=== PATIENT | female | born 1945 | race Caucasian/White ===

== ENCOUNTER 2017-02-17 16:08 | Emergency (ER) | payer MEDICARE, OTHER ==
[~2017-02-17] VITALS: Ht 160 cm; Wt 83.9 kg
[~2017-02-17 16:08] MED LIST: AMLO10TA4 PO; ASPI81TA2 PO; DESI25TA PO; GABA300C PO; LORA2TAB PO; OMEP20CA4 PO; ROSU20TA PO; [UNRECOGNIZED DRUG - CODE] PO
--- NOTE | 2017-02-17 16:15 | NUR ---
bib son, cc: right knee pain ,05/30, s/p mechanical fall at 1200. Patient is aao4,appears in no apparent distress, respiration even and unlabored. Pt is ambulatory.
[2017-02-17] MEDS ORDERED: IV NS 0.9% 0 ML IV ONE (16:59)
--- NOTE | 2017-02-17 17:00 | NUR ---
knee immobiler not applied; the patient is ambulatory with steady gait.
[2017-02-17 17:10] VITALS: BP 120/80
--- NOTE | 2017-02-17 17:10 | NUR ---
Patient discharged to home in stable condition. Written and verbal after care instructions given. Patient verbalizes understanding of instruction.
== END 2017-02-17 17:13 | disposition home or self-care (01) ==
LOC: ER 16:08
DX: S80.01XA Contusion of right knee, initial encounter (principal); M25.561 Pain in right knee; I10 Essential (primary) hypertension; Z96.652 Presence of left artificial knee joint; Z88.0 Allergy status to penicillin; W18.30XA Fall on same level, unspecified, initial encounter; Y93.89 Activity, other specified; Y92.89 Other specified places as the place of occurrence of the external cause; Y99.8 Other external cause status; Z88.8 Allergy status to other drugs, medicaments and biological substances; Z79.82 Long term (current) use of aspirin
CPT/HCPCS: 99283; A4606; J7040; Z7610

== ENCOUNTER 2017-05-26 16:51 | Inpatient (IN) | payer MEDICARE, OTHER ==
[~2017-05-26] VITALS: Ht 160 cm; Wt 85.3 kg
--- NOTE | 2017-05-26 16:51 | NUR ---
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 PER EMS, PT REPORTED CHEST TIGHTNESS WHICH WAS RELIEVED WITH HER INHALER. NAD NOTED. PT AAO X4, AMBULATORY WITH ASSIST. RR EVEN AND UNLABORED. PT PLACED IN GOWN AND MONITOR. DR MARCUM AT BEDSIDE FOR EVAL.
[2017-05-26] MEDS ORDERED: ASPIRIN 325 MG TABLET ONE (17:13)
[2017-05-26] MEDS ORDERED: NITROGLYCERIN 0.4 MG/TAB BOTTLE ONE (17:13)
[2017-05-26 17:16] LABS: BASOPHILS # (AUTO) 0.2 /CMM (0.0-0.2); BASOPHILS % (AUTO) 1.9 % (0.0-2.0); EOSINOPHILS # (AUTO) 0.6 /CMM (0.0-0.7); HEMATOCRIT 35 % (33-45); HEMOGLOBIN 11.5 g/dL (11.5-14.8); LYMPHOCYTES # (AUTO) 2.2 /CMM (0.8-4.8); LYMPHOCYTES % (AUTO) 27.4 % (20.0-44.0); MEAN CORPUSCULAR HEMOGLOBIN 32 PG (26.0-33.0); MEAN CORPUSCULAR HGB CONC 33 g/dl (31.0-36.0); MEAN CORPUSCULAR VOLUME 97 fL (82-100); MONOCYTES # (AUTO) 0.6 /CMM (0.1-1.30); MONOCYTES % (AUTO) 7.6 % (2.0-12.0); NEUTROPHILS # (AUTO) 4.3 /CMM (1.8-8.9); NEUTROPHILS % (AUTO) 55.1 % (43.0-81.0); PLATELET COUNT (AUTO) 227 /CMM (150-450); RDW COEFFICIENT OF VARIATION 13.9 (11.5-15.0); RED BLOOD CELL COUNT(AUTO) 3.64 MIL/uL (4.0-5.2); WHITE BLOOD COUNT (AUTO) 7.9 K/uL (4.3-11.0)
[2017-05-26 17:26] LABS: CALCIUM, SERUM 8.5 mg/dL (8.5-10.1); CARBON DIOXIDE 27 mmol/L (21-32); CHLORIDE 97 mmol/L (98-107); GLUCOSE 104 mg/dL (74-106); POTASSIUM 4.1 mmol/L (3.5-5.1); SODIUM SERUM 130 mmol/L (136-145); UREA NITROGEN, BLOOD 25 mg/dL (7-18)
[2017-05-26 17:29] LABS: INR 0.97 (0.87-1.13); PROTHROMBIN TIME 10.1 SECS (9.5-12.7)
[2017-05-26] MEDS ORDERED: NITROGLYCERIN 0.4 MG/TAB BOTTLE SL ONE (17:30)
[2017-05-26] MEDS ORDERED: IV NS 0.9% 1,000 ML BAG IV ONE (17:30)
[2017-05-26] MEDS ORDERED: ASPIRIN 325 MG TABLET PO ONE (17:30)
[2017-05-26 17:35] LABS: TROPONIN I < 0.017 ng/mL (0.00-0.056)
[2017-05-26] MEDS ORDERED: ONDANSETRON HCL/PF 4 MG/2 ML VIAL ONE (17:43)
[2017-05-26] MEDS ORDERED: MORPHINE SULFATE INJ 4 MG/ML DISP.SYRIN ONE ×2 (17:43→21:37)
[2017-05-26] MEDS ORDERED: MORPHINE SULFATE INJ 2 MG/ML DISP.SYRIN IV ONE ×2 (18:00→21:30)
[2017-05-26] MEDS ORDERED: ONDANSETRON HCL/PF 4 MG/2 ML VIAL IVP ONE (18:00)
--- NOTE | 2017-05-26 19:06 | NUR ---
RECEIVED REPORT FROM MISTY IRAHETA AND MISTY GALLO FOR RODRIGUEZ.
--- NOTE | 2017-05-26 19:45 | NUR ---
URINE COLLECTED. CALLED LAB FOR MANAGER CORPORATE RESPONSIBILITY.
[2017-05-26 20:28] LABS: APPEARANCE,URINE Clear (CLEAR); BILIRUBIN,URINE Negative (NEGATIVE); BLOOD, URINE Trace-lysed Ery/uL (NEGATIVE); COLOR,URINE Yellow (YELLOW); KETONES,URINE Negative (NEGATIVE); LEUKOCYTE ESTERASE ,URINE Negative (NEGATIVE); NITRITE, URINE Negative (NEGATIVE); PH,URINE 5.5 (5.0-8.0); PROTEIN,URINE Negative (NEGATIVE); UGLUCOSE Negative (NEGATIVE); UROBILINOGEN,URINE 0.2 EU/dL (0.2)
[2017-05-26 20:49] LABS: BACTERIA,URINE Few /HPF (None Seen); MUCUS,URINE Moderate /LPF (None Seen); RBC,URINE 2-3/HPF /HPF (0-2); SQUAMOUS EPITHELIAL CELL,UR Few /HPF (None Seen); URINE AMORPHOUS URATE Few /HPF (None Seen); WBC,URINE 0-2 /HPF (0-3)
--- NOTE | 2017-05-26 22:20 | NUR ---
PT ASSIGNED TO [facility] 322-2
--- NOTE | 2017-05-26 22:24 | NUR ---
REPORT GIVEN TO MISTY GRUBBS FOR CONTINUE OF CARE.
--- NOTE | 2017-05-26 22:28 | NUR ---
PT TRANSFERED TO [facility] BED 322-2 PER ACLS PROTOCOL.
[2017-05-26 22:30] VITALS: BP 121/72
[2017-05-26] MEDS ORDERED: ONDANSETRON HCL/PF 4 MG/2 ML VIAL IVP PRN (22:30)
[2017-05-26] MEDS ORDERED: MORPHINE SULFATE INJ 2 MG/ML DISP.SYRIN IV PRN (22:30)
[2017-05-26] MEDS ORDERED: NITROGLYCERIN 0.4 MG/TAB BOTTLE SL PRN (22:30)
[2017-05-26] MEDS ORDERED: ASPIRIN EC 81 MG TABLET.DR PO ONE (23:48)
[2017-05-26] MEDS ORDERED: METOPROLOL TARTRATE 25 MG TABLET ONE (23:48)
[2017-05-26] MEDS ORDERED: GABAPENTIN 300 MG CAPSULE ONE (23:49)
[2017-05-26] MEDS ORDERED: AMLODIPINE BESYLATE 10 MG TABLET ONE (23:50)
[2017-05-26] MEDS: GABAPENTIN 300 MG CAPSULE PO SCH (23:58)
[2017-05-27] MEDS ORDERED: ASPIRIN 81 MG TAB.CHEW ONE (00:02)
[2017-05-27] MEDS: ASPIRIN 81 MG TAB.CHEW PO SCH ×2 (00:02→13:17)
--- NOTE | 2017-05-27 01:50 | NUR ---
ACCESS SERVICES REPRESENTATIVE TELE NOTES RECEIVED PATIENT VIA MAGALYS 05/26/2017 AT 2230 FROM E.R SERVICES/ACLS PROTOCOL ADMIT TO TELE ATTACH TO TELE MONITOR WITH DIAGNOSIS OF CHEST PAIN. NO S/S OF DISTRESS OR SOB. NO COMPLAIN OF CHEST PAIN AT THIS TIME, ON 2LPM VIA MA 02 SAT AT 97%, PATIENT CAN ABLE TO WALK TO THE TOILET, HEAD TO TOE ASSESSMENT IS DONE SKIN IS INTACT, SAFETY MEASURES IN PLACE, ON LOW BED TO ENSURE SAFETY. CALL LIGHT WITHIN REACH. WILL CONTINUE TO MONITOR.
[2017-05-27 04:00] VITALS: BP 128/69
--- NOTE | 2017-05-27 06:52 | NUR ---
MS RN CLOSING NOTES PATIENT COMFORTABLY ASLEEP AND EASILY AWAKEN, HEAD OF BED ELEVATED FOR BETTER LUNG EXPANSION AND GOOD CIRCULATION. ON 2LPM VIA NC 02 AT 99%, LAC 20, IV SITE NO S/S OF INFILTRATED PATENT AND FLUSHED, RESPIRATIONS EVEN AND UNLABORED, FREQUENT VISUAL CHECK DONE FOR SAFETY EVERY 2 HOURS. NURSING CARE RENDERED, NEEDS ATTENDED AND ANTICIPATED, KEPT CLEAN AND DRY AND COMFORTABLE, GOOD SKIN CARE PROVIDED. OFFLOAD AT ALL TIMES. SAFE HAZARD FREE ENVIRONMENT PROVIDED. CALL LIGHT WITHIN EASY TO REACH, ON LOW BED AT ALL TIMES TO ENSURE SAFETY, WILL ENDORSE TO THE NEXT SHIFT CONTINUE PLAN OF CARE. ATTACH TO TELE MONITOR, ON CONTINOUS MONITORING SR 65'S
[2017-05-27 08:00] VITALS: BP 122/70
--- NOTE | 2017-05-27 08:22 | NUR ---
ADMINISTRATIVE JUDGE: INITIAL NOTE RECEIVED PT A/Q X3. NO DISTRESS NOTED. ON 2 L NC SATING AT 95%. CURRENTLY NPO DUE TO POSSIBLE STRESS TEST. NO DISTRESS NOTED. NO SOB NOTED. NO PAIN NOTED. NO N/V NOTED. L AC #20. RESTING COMFORTABLY IN BED. CALL LIGHT WITHIN REACH.
[2017-05-27] MEDS ORDERED: REGADENOSON 0.4 MG/5 ML DISP.SYRIN IVP ONE (09:00)
[2017-05-27] MEDS ORDERED: LORAZEPAM 1 MG TABLET PO SCH (09:30)
[2017-05-27] MEDS ORDERED: HYDROCODONE/APAP 10/325MG 1 EA TABLET PO PRN (09:30)
[2017-05-27] MEDS ORDERED: DESIPRAMINE HCL 10 MG TABLET PO SCH (11:30)
--- NOTE | 2017-05-27 12:02 | NUR ---
PHYSICAL CHEMIST: NOTE PT PICKED UP BY RADIOLOGY FOR STRESS TEST. PT NPO SINCE MORNING. VS STABLE. NO DISTRESS NOTED.
[2017-05-27 12:03] LABS: CHOLESTEROL 114 mg/dL (<200); HDL CHOLESTEROL 55 mg/dL (40-60); LDL 49 mg/dL (0-99); TRIGLYCERIDES 77 mg/dL (30-150)
--- NOTE | 2017-05-27 13:00 | NUR ---
PT RETURNED FROM NUCLEAR MEDICINE. NO DISTRESS NOTED. NPO STOPPED. ABLE TO EAT. ALL MEDICATIONS ADMINISTERED.
[2017-05-27 13:17] VITALS: BP 138/72
[2017-05-27] MEDS: METOPROLOL TARTRATE 25 MG TABLET PO SCH ×2 (13:17)
[2017-05-27] MEDS: AMLODIPINE BESYLATE 10 MG TABLET PO SCH ×2 (13:17)
[2017-05-27] MEDS: GABAPENTIN 300 MG CAPSULE PO SCH (13:17)
--- NOTE | 2017-05-27 15:36 | NUR ---
CAREER CENTER DIRECTOR: DISCHARGE NOTE PT D/C HOME. TOOK ALL MEDICATIONS. ALL BELONGINGS ACCOUNTED FOR. NO DISTRESS NOTED. VS STABLE. NO SOB NOTED. NO PAIN NOTED. IV LOCK REMOVED FROM LEFT AC. NO REDNESS OR BLEEDING NOTED. CALLED [facility] TO TAKE PT HOME. ALL DISCHARGE PAPERS SIGNED AND COPIES GIVEN TO PT. ALL DISCHARGE INFORMATION EXPLAINED.
[2017-05-28] MEDS ORDERED: PANTOPRAZOLE 40 MG TABLET.DR PO SCH (09:00)
[2017-05-28] MEDS ORDERED: ATORVASTATIN 40 MG TABLET PO SCH (09:00)
== END 2017-05-27 15:30 | disposition home or self-care (01) | DRG 206 ==
LOC: ER 16:54 → TELE 22:38 → MED 05-27 10:50
PROVIDERS: ADMIT Internal Medicine; ATTEND Internal Medicine
DX: M94.0 Chondrocostal junction syndrome [Tietze] (principal); E22.2 Syndrome of inappropriate secretion of antidiuretic hormone; K27.9 Peptic ulcer, site unspecified, unspecified as acute or chronic, without hemorrhage or perforation; I25.10 Atherosclerotic heart disease of native coronary artery without angina pectoris; E78.5 Hyperlipidemia, unspecified; K21.9 Gastro-esophageal reflux disease without esophagitis; F32.9 Major depressive disorder, single episode, unspecified; J45.909 Unspecified asthma, uncomplicated; Z88.0 Allergy status to penicillin; I10 Essential (primary) hypertension; R79.89 Other specified abnormal findings of blood chemistry; G43.909 Migraine, unspecified, not intractable, without status migrainosus; M17.0 Bilateral primary osteoarthritis of knee; Z96.652 Presence of left artificial knee joint; Z87.891 Personal history of nicotine dependence; Z96.611 Presence of right artificial shoulder joint; K59.09 Other constipation
CPT/HCPCS: 36415; 71010-TC; 80048-TC; 80061-TC; 81000-TC; 84484-TC; 85025-TC; 85730-TC; 87081-TC; 87086-TC; 93307-TC; A4606; A9502; J2270; J2405; J2785; J7030; Z7610

== ENCOUNTER 2017-06-10 14:58 | Emergency (ER) | payer MEDICARE, OTHER ==
[~2017-06-10] VITALS: Ht 165.1 cm; Wt 68.0 kg
--- NOTE | 2017-06-10 15:40 | NUR ---
PT TAKEN TO CT.
--- NOTE | 2017-06-10 16:47 | NUR ---
Patient discharged to home in stable condition. Written and verbal after care instructions given. Patient verbalizes understanding of instruction.
[2017-06-10 16:51] VITALS: BP 109/65
== END 2017-06-10 16:52 | disposition home or self-care (01) ==
LOC: ER 15:01
DX: S09.90XA Unspecified injury of head, initial encounter (principal); E78.5 Hyperlipidemia, unspecified; G62.9 Polyneuropathy, unspecified; I10 Essential (primary) hypertension; M81.0 Age-related osteoporosis without current pathological fracture; Z79.82 Long term (current) use of aspirin; Z88.0 Allergy status to penicillin; Z88.8 Allergy status to other drugs, medicaments and biological substances; W18.30XA Fall on same level, unspecified, initial encounter; Y92.89 Other specified places as the place of occurrence of the external cause; Y93.89 Activity, other specified; Y99.8 Other external cause status
CPT/HCPCS: 70450-TC; 72125-TC; A4606; Z7610

== ENCOUNTER 2017-11-19 13:22 | Emergency (ER) | payer MEDICARE, OTHER ==
[~2017-11-19] VITALS: Ht 165.1 cm; Wt 79.4 kg
[~2017-11-19 13:22] MED LIST changes: +ASPI-1169 PO; -ASPI81TA2 PO
--- NOTE | 2017-11-19 13:35 | NUR ---
AAOX3, BB FAMILY: HEAD PAIN S/P HITTING AGAINST DESK YESTERDAY. RR IS EVEN AND UNLABORED WITH NAD NOTED. SKIN IS WARM AND DRY. AWAITING MD FOR EVAL.
[2017-11-19] MEDS ORDERED: ONDANSETRON 4 MG TAB.RAPDIS SL ONE (15:00)
[2017-11-19] MEDS ORDERED: HYDROCODONE/APAP 5/325MG 1 EACH TABLET PO ONE (15:00)
[2017-11-19] MEDS ORDERED: HYDROCODONE/APAP 5/325MG 1 EACH TABLET ONE (15:11)
[2017-11-19] MEDS ORDERED: ONDANSETRON 4 MG TAB.RAPDIS ONE (15:11)
[2017-11-19 15:55] VITALS: BP 108/74
== END 2017-11-19 15:56 | disposition home or self-care (01) ==
LOC: ER 13:25
DX: S09.8XXA Other specified injuries of head, initial encounter (principal); G43.909 Migraine, unspecified, not intractable, without status migrainosus; E78.5 Hyperlipidemia, unspecified; F41.9 Anxiety disorder, unspecified; G62.9 Polyneuropathy, unspecified; I10 Essential (primary) hypertension; Z79.82 Long term (current) use of aspirin; Z86.73 Personal history of transient ischemic attack (TIA), and cerebral infarction without residual deficits; Z88.0 Allergy status to penicillin; Z88.8 Allergy status to other drugs, medicaments and biological substances; W22.8XXA Striking against or struck by other objects, initial encounter; Y93.89 Activity, other specified; Y92.89 Other specified places as the place of occurrence of the external cause; Y99.8 Other external cause status
CPT/HCPCS: 70450; 99284; A4606; Q0162; Z7610

== ENCOUNTER 2018-03-05 09:46 | Emergency (ER) | payer MEDICARE, OTHER ==
[~2018-03-05] VITALS: Ht 160 cm; Wt 83.9 kg
[2018-03-05 09:58] VITALS: BP 156/69
[2018-03-05] MEDS ORDERED: CLINDAMYCIN HCL 150 MG CAPSULE PO ONE (10:30)
== END 2018-03-05 10:25 | disposition home or self-care (01) ==
LOC: ER 09:46
DX: L03.221 Cellulitis of neck (principal); G43.909 Migraine, unspecified, not intractable, without status migrainosus; E78.5 Hyperlipidemia, unspecified; I10 Essential (primary) hypertension; G62.9 Polyneuropathy, unspecified; M19.90 Unspecified osteoarthritis, unspecified site; F41.9 Anxiety disorder, unspecified; Z96.652 Presence of left artificial knee joint; Z88.0 Allergy status to penicillin; Z88.8 Allergy status to other drugs, medicaments and biological substances
CPT/HCPCS: A4606; Z7610

== ENCOUNTER 2018-05-14 15:56 | Emergency (ER) | payer MEDICARE, OTHER ==
[~2018-05-14] VITALS: Ht 160 cm; Wt 83.9 kg
[2018-05-14 15:56] VITALS: BP 125/73
[2018-05-14] MEDS ORDERED: HALOPERIDOL LACTATE INJ 5 MG/ML VIAL ONE (16:47)
[2018-05-14] MEDS ORDERED: HALOPERIDOL LACTATE INJ 5 MG/ML VIAL IM ONE (17:00)
== END 2018-05-14 17:31 | disposition home or self-care (01) ==
LOC: ER 15:57
DX: F41.1 Generalized anxiety disorder (principal); G89.4 Chronic pain syndrome; G43.909 Migraine, unspecified, not intractable, without status migrainosus; G62.9 Polyneuropathy, unspecified; I10 Essential (primary) hypertension; E78.5 Hyperlipidemia, unspecified; K21.9 Gastro-esophageal reflux disease without esophagitis; J45.909 Unspecified asthma, uncomplicated; Z96.659 Presence of unspecified artificial knee joint; Z88.0 Allergy status to penicillin; Z88.8 Allergy status to other drugs, medicaments and biological substances; Z79.82 Long term (current) use of aspirin
CPT/HCPCS: 96372; 99284; A4606; J1630; Z7610

== ENCOUNTER 2018-06-17 17:12 | Emergency (ER) | payer MEDICARE, OTHER ==
[~2018-06-17] VITALS: Ht 160 cm; Wt 88.9 kg
--- NOTE | 2018-06-17 17:15 | NUR ---
BIB C/O NON-RADIATING MIDSTERNAL CP X 2 DAYS. A/OX 4, BREATHING EVEN AND UNLABORED. NO SOB, NAD, VITALS STABLE. SAFETY AND COMFORT MEASURES IN [place]. AWAITING MD ORDERS.
--- NOTE | 2018-06-17 17:25 | NUR ---
NEW IV STARTED ON RFA, 20G. BLOOD DRAWN AND SENT TO LAB.
[2018-06-17] MEDS ORDERED: ASPIRIN 325 MG TABLET PO ONE (17:30)
[2018-06-17] MEDS ORDERED: ASPIRIN 325 MG TABLET ONE (17:35)
[2018-06-17 17:39] LABS: BASOPHILS # (AUTO) 0.1 /CMM (0.0-0.2); BASOPHILS % (AUTO) 0.8 % (0.0-2.0); EOSINOPHILS % (AUTO) 12.6 % (0.0-6.0); HEMATOCRIT 37 % (33-45); HEMOGLOBIN 12.3 g/dL (11.5-14.8); LYMPHOCYTES # (AUTO) 2.5 /CMM (0.8-4.8); LYMPHOCYTES % (AUTO) 35.9 % (20.0-44.0); MEAN CORPUSCULAR HGB CONC 33 g/dl (31.0-36.0); MEAN CORPUSCULAR VOLUME 91 fL (82-100); MONOCYTES # (AUTO) 0.5 /CMM (0.1-1.30); MONOCYTES % (AUTO) 7.6 % (2.0-12.0); NEUTROPHILS # (AUTO) 2.9 /CMM (1.8-8.9); NEUTROPHILS % (AUTO) 43.1 % (43.0-81.0); PLATELET COUNT (AUTO) 248 /CMM (150-450); RDW COEFFICIENT OF VARIATION 13.8 (11.5-15.0); WHITE BLOOD COUNT (AUTO) 6.9 K/uL (4.3-11.0)
[2018-06-17 17:49] LABS: CALCIUM, SERUM 8.6 mg/dL (8.5-10.1); CARBON DIOXIDE 26 mmol/L (21-32); CHLORIDE 95 mmol/L (98-107); CREATININE 0.9 mg/dL (0.6-1.3); GLUCOSE 108 mg/dL (74-106); POTASSIUM 3.9 mmol/L (3.5-5.1); SODIUM SERUM 127 mmol/L (136-145); UREA NITROGEN, BLOOD 10 mg/dL (7-18)
[2018-06-17] MEDS ORDERED: RANI300T4 PO (17:50)
[2018-06-17] MEDS ORDERED: DEXL30CA3 PO (17:50)
[2018-06-17] MEDS ORDERED: LISI2.5T2 PO (17:50)
[2018-06-17] MEDS ORDERED: OXYC5TAB3 PO (17:50)
[2018-06-17] MEDS ORDERED: POLY17PO4 PO (17:50)
[2018-06-17] MEDS ORDERED: BISA5TAB10 PO (17:50)
[2018-06-17] MEDS ORDERED: ALBU18HF2 IH (17:50)
[2018-06-17 17:53] LABS: INR 0.92 (0.85-1.15)
[2018-06-17 17:58] LABS: TROPONIN I < 0.017 ng/mL (0.00-0.056)
[2018-06-17 18:02] LABS: B-TYPE NATRIURETIC PEPTIDE 162 PG/ML (0-125)
--- NOTE | 2018-06-17 18:10 | NUR ---
SLEEVE SETTER SAFETY STITCH AT BEDSIDE.
[2018-06-17 18:36] VITALS: BP 152/61
--- NOTE | 2018-06-17 18:37 | NUR ---
IV removed. Catheter intact and site benign. Pressure and 4x4 applied to site. No bleeding noted. Patient discharged to home in stable condition. Written and verbal after care instructions given. Patient verbalizes understanding of instruction.
== END 2018-06-17 18:36 | disposition home or self-care (01) ==
LOC: ER 17:13
DX: R07.89 Other chest pain (principal); R06.02 Shortness of breath; G43.909 Migraine, unspecified, not intractable, without status migrainosus; G62.9 Polyneuropathy, unspecified; I10 Essential (primary) hypertension; E78.5 Hyperlipidemia, unspecified; F41.9 Anxiety disorder, unspecified; I49.8 Other specified cardiac arrhythmias; Z96.652 Presence of left artificial knee joint; Z88.0 Allergy status to penicillin; Z88.8 Allergy status to other drugs, medicaments and biological substances; Z87.891 Personal history of nicotine dependence; Z79.82 Long term (current) use of aspirin
CPT/HCPCS: 36415; 71045-TC; 80048-TC; 83880; 84484-TC; 85025-TC; 85730-TC; A4606; Z7610

== ENCOUNTER 2018-09-16 15:31 | Emergency (ER) | END 2018-09-16 16:59 | disposition home or self-care (01) | DX: G43.909 Migraine, unspecified, not intractable, without status migrainosus (principal); G62.9 Polyneuropathy, unspecified; F41.9 Anxiety disorder, unspecified; F32.9 Major depressive disorder, single episode, unspecified; I10 Essential (primary) hypertension; E78.5 Hyperlipidemia, unspecified; Z96.652 Presence of left artificial knee joint; Z88.1 Allergy status to other antibiotic agents; Z88.8 Allergy status to other drugs, medicaments and biological substances; Z79.82 Long term (current) use of aspirin; Z87.891 Personal history of nicotine dependence ==

== ENCOUNTER 2018-12-29 14:30 | Emergency (ER) | payer MEDICARE, OTHER ==
[~2018-12-29] VITALS: Ht 160 cm; Wt 89.8 kg
[~2018-12-29 14:30] MED LIST changes: +ALBU18HF2 IH; -AMLO10TA4 PO; +BISA5TAB10 PO; -DESI25TA PO; +DEXL30CA3 PO; -GABA300C PO; +LISI2.5T2 PO; -OMEP20CA4 PO; +OXYC5TAB3 PO; +POLY17PO4 PO; +RANI300T4 PO; -ROSU20TA PO; +ROSU20TA2 PO; -[UNRECOGNIZED DRUG - CODE] PO
[2018-12-29] MEDS ORDERED: HALOPERIDOL LACTATE INJ 5 MG/ML VIAL ONE (14:58)
[2018-12-29] MEDS ORDERED: HALOPERIDOL LACTATE INJ 5 MG/ML VIAL IM ONE (15:00)
[2018-12-29 15:06] VITALS: BP 112/63
== END 2018-12-29 15:07 | disposition home or self-care (01) ==
LOC: ER 14:31
DX: G43.909 Migraine, unspecified, not intractable, without status migrainosus (principal); F41.9 Anxiety disorder, unspecified; G89.29 Other chronic pain; E78.5 Hyperlipidemia, unspecified; I10 Essential (primary) hypertension; G62.9 Polyneuropathy, unspecified; Z96.652 Presence of left artificial knee joint; Z88.0 Allergy status to penicillin; Z88.8 Allergy status to other drugs, medicaments and biological substances; Z79.82 Long term (current) use of aspirin
CPT/HCPCS: 96372; 99283; J1630

== ENCOUNTER 2019-01-13 08:13 | Emergency (ER) | payer MEDICARE, OTHER ==
[~2019-01-13] VITALS: Ht 160 cm; Wt 42.2 kg
--- NOTE | 2019-01-13 08:16 | NUR ---
BIB SON W C/O MID CHEST PAIN, HEAVY FEELING STATED BY PT, MIGRAINE AND BILAT HANDS NUMBNESS, TO ER BED 10 , HOOKED TO ISOTOPE TECHNOLOGIST, CHANGED TO GOWN, PROVIDED W WARM BLANKET, AWAITING MD CARTER.
[2019-01-13 08:57] LABS: BASOPHILS # (AUTO) 0.1 /CMM (0.0-0.2); BASOPHILS % (AUTO) 0.6 % (0.0-2.0); HEMATOCRIT 35 % (33-45); HEMOGLOBIN 11.4 g/dL (11.5-14.8); LYMPHOCYTES # (AUTO) 2.3 /CMM (0.8-4.8); MEAN CORPUSCULAR HGB CONC 33 g/dl (31.0-36.0); MEAN CORPUSCULAR VOLUME 93 fL (82-100); MONOCYTES # (AUTO) 0.9 /CMM (0.1-1.30); MONOCYTES % (AUTO) 8.7 % (2.0-12.0); NEUTROPHILS # (AUTO) 3.5 /CMM (1.8-8.9); NEUTROPHILS % (AUTO) 33.1 % (43.0-81.0); PLATELET COUNT (AUTO) 252 /CMM (150-450); RED BLOOD CELL COUNT(AUTO) 3.72 MIL/uL (4.0-5.2); WHITE BLOOD COUNT (AUTO) 10.5 K/uL (4.3-11.0)
[2019-01-13 08:58] LABS: EOSINOPHILS % (AUTO) 35.6 % (0.0-6.0)
[2019-01-13] MEDS ORDERED: IV NS 0.9% 1,000 ML BAG IV ONE (09:00)
[2019-01-13] MEDS ORDERED: METOCLOPRAMIDE HCL 10 MG/2 ML VIAL IV ONE (09:00)
[2019-01-13] MEDS ORDERED: METOCLOPRAMIDE HCL 10 MG/2 ML VIAL ONE (09:05)
--- NOTE | 2019-01-13 09:10 | NUR ---
RDA AT BEDSIDE.
[2019-01-13 09:22] LABS: CALCIUM, SERUM 8.7 mg/dL (8.5-10.1); CARBON DIOXIDE 29 mmol/L (21-32); CHLORIDE 95 mmol/L (98-107); CREATININE 0.9 mg/dL (0.6-1.3); GLUCOSE 103 mg/dL (74-106); POTASSIUM 3.9 mmol/L (3.5-5.1); SODIUM SERUM 131 mmol/L (136-145); UREA NITROGEN, BLOOD 16 mg/dL (7-18)
[2019-01-13 09:51] LABS: EOSINOPHILS % (MANUAL) 32 % (0-4); LYMPHOCYTES % (MANUAL) 23 % (16-48); MONOCYTES % (MANUAL) 10 % (0-11.0); NEUTROPHILS % (MANUAL) 35 (42-76)
[2019-01-13] MEDS ORDERED: HALOPERIDOL LACTATE INJ 5 MG/ML VIAL ONE (10:27)
[2019-01-13] MEDS ORDERED: HALOPERIDOL LACTATE INJ 5 MG/ML VIAL IV ONE (10:30)
--- NOTE | 2019-01-13 11:07 | NUR ---
IV removed. Catheter intact and site benign. Pressure and 4x4 applied to site. No bleeding noted.Patient discharged to home in stable condition. Written and verbal after care instructions given. Patient verbalizes understanding of instruction.
[2019-01-13 11:11] VITALS: BP 147/79
== END 2019-01-13 11:11 | disposition home or self-care (01) ==
LOC: ER 08:15
DX: R07.89 Other chest pain (principal); G43.909 Migraine, unspecified, not intractable, without status migrainosus; I10 Essential (primary) hypertension; E78.5 Hyperlipidemia, unspecified; G62.9 Polyneuropathy, unspecified; F41.9 Anxiety disorder, unspecified; Z96.652 Presence of left artificial knee joint; Z88.0 Allergy status to penicillin; Z88.8 Allergy status to other drugs, medicaments and biological substances; Z79.82 Long term (current) use of aspirin; Z87.891 Personal history of nicotine dependence
CPT/HCPCS: 36415; 71045; 80048; 84484; 85025; 93005; 96374; 96375; 99284; A4216; J1630; J2765; J7030

== ENCOUNTER 2019-02-01 17:33 | Emergency (ER) | payer MEDICARE, OTHER ==
[~2019-02-01] VITALS: Ht 160 cm; Wt 86.2 kg
[2019-02-01 17:33] VITALS: BP 128/62
[2019-02-01] MEDS ORDERED: LIDOCAINE /MPF 1% VIAL 5 ML VIAL ONE (19:27)
[2019-02-01] MEDS ORDERED: LIDOCAINE HCL/PF 1% 30 ML VIAL TP ONE (19:30)
[2019-02-01] MEDS ORDERED: HALOPERIDOL LACTATE INJ 5 MG/ML VIAL IM ONE (20:00)
[2019-02-01] MEDS ORDERED: HALOPERIDOL LACTATE INJ 5 MG/ML VIAL ONE (20:01)
== END 2019-02-01 20:38 | disposition home or self-care (01) ==
LOC: ER 17:33
DX: L03.011 Cellulitis of right finger (principal); G43.909 Migraine, unspecified, not intractable, without status migrainosus; I10 Essential (primary) hypertension; E78.5 Hyperlipidemia, unspecified; G62.9 Polyneuropathy, unspecified; F41.9 Anxiety disorder, unspecified; Z96.652 Presence of left artificial knee joint; Z88.0 Allergy status to penicillin; Z88.8 Allergy status to other drugs, medicaments and biological substances; Z79.82 Long term (current) use of aspirin; Z87.891 Personal history of nicotine dependence; W01.0XXA Fall on same level from slipping, tripping and stumbling without subsequent striking against object, initial encounter; Y93.89 Activity, other specified; Y92.89 Other specified places as the place of occurrence of the external cause; Y99.8 Other external cause status
CPT/HCPCS: 11750; 96372; 99284; J1630; J3490 ×2

== ENCOUNTER 2019-02-24 16:51 | Emergency (ER) | payer MEDICARE, OTHER ==
[~2019-02-24] VITALS: Ht 165.1 cm; Wt 91.2 kg
[2019-02-24 17:18] VITALS: BP 122/81
[2019-02-24] MEDS ORDERED: ACETAMINOPHEN 325 MG TABLET PO ONE (18:00)
[2019-02-24] MEDS ORDERED: ACETAMINOPHEN 325 MG TABLET ONE (18:13)
== END 2019-02-24 19:11 | disposition home or self-care (01) ==
LOC: ER 16:52
DX: S93.491A Sprain of other ligament of right ankle, initial encounter (principal); G43.909 Migraine, unspecified, not intractable, without status migrainosus; I10 Essential (primary) hypertension; E78.5 Hyperlipidemia, unspecified; F41.9 Anxiety disorder, unspecified; M19.90 Unspecified osteoarthritis, unspecified site; M81.0 Age-related osteoporosis without current pathological fracture; G62.9 Polyneuropathy, unspecified; Z96.652 Presence of left artificial knee joint; Z88.0 Allergy status to penicillin; Z88.8 Allergy status to other drugs, medicaments and biological substances; Z87.891 Personal history of nicotine dependence; Z79.82 Long term (current) use of aspirin; Z79.899 Other long term (current) drug therapy; W01.0XXA Fall on same level from slipping, tripping and stumbling without subsequent striking against object, initial encounter; Y93.89 Activity, other specified; Y92.89 Other specified places as the place of occurrence of the external cause; Y99.8 Other external cause status
CPT/HCPCS: 73610-TC; 73630-TC

== ENCOUNTER 2019-04-19 12:23 | Emergency (ER) | payer MEDICARE, OTHER ==
[~2019-04-19] VITALS: Ht 160 cm; Wt 92.5 kg
[2019-04-19 12:38] VITALS: BP 127/55
--- NOTE | 2019-04-19 12:40 | NUR ---
OLEKSANDR FLORES AT BEDSIDE FOR EVAL.
[2019-04-19] MEDS ORDERED: HALOPERIDOL LACTATE INJ 5 MG/ML VIAL ONE (12:51)
--- NOTE | 2019-04-19 12:55 | NUR ---
URINE SPECIMEN COLLECTED AND SENT TO LAB.
[2019-04-19] MEDS ORDERED: HALOPERIDOL LACTATE INJ 5 MG/ML VIAL IM ONE (13:00)
[2019-04-19 13:10] LABS: APPEARANCE,URINE Clear (CLEAR); BILIRUBIN,URINE Negative (NEGATIVE); BLOOD, URINE Small Ery/uL (NEGATIVE); COLOR,URINE Yellow (YELLOW); KETONES,URINE Negative (NEGATIVE); LEUKOCYTE ESTERASE ,URINE Negative (NEGATIVE); NITRITE, URINE Negative (NEGATIVE); PH,URINE 7.5 (5.0-8.0); PROTEIN,URINE Negative (NEGATIVE); UGLUCOSE Negative (NEGATIVE); UROBILINOGEN,URINE 0.2 EU/dL (0.2)
[2019-04-19 13:14] LABS: BACTERIA,URINE Rare /HPF (None Seen); SQUAMOUS EPITHELIAL CELL,UR Few /HPF (None Seen); WBC,URINE 0-2 /HPF (0-3)
[2019-04-19] MEDS ORDERED: ACETAMINOPHEN 325 MG TABLET PO ONE (13:30)
== END 2019-04-19 13:51 | disposition home or self-care (01) ==
LOC: ER 12:23
DX: G43.909 Migraine, unspecified, not intractable, without status migrainosus (principal); F41.9 Anxiety disorder, unspecified; R35.8 Other polyuria; I10 Essential (primary) hypertension; E78.5 Hyperlipidemia, unspecified; G62.9 Polyneuropathy, unspecified; M19.90 Unspecified osteoarthritis, unspecified site; M81.0 Age-related osteoporosis without current pathological fracture; Z96.652 Presence of left artificial knee joint; Z88.0 Allergy status to penicillin; Z88.8 Allergy status to other drugs, medicaments and biological substances; Z87.891 Personal history of nicotine dependence; Z79.899 Other long term (current) drug therapy; Z79.82 Long term (current) use of aspirin
CPT/HCPCS: 81001; 96372; 99283; J1630; 81000-TC

== ENCOUNTER 2019-05-05 16:56 | Emergency (ER) | payer MEDICARE, OTHER ==
[~2019-05-05] VITALS: Ht 160 cm; Wt 92.1 kg
[2019-05-05] MEDS ORDERED: HALOPERIDOL LACTATE INJ 5 MG/ML VIAL IM ONE (18:00)
[2019-05-05] MEDS ORDERED: HALOPERIDOL LACTATE INJ 5 MG/ML VIAL ONE (18:07)
[2019-05-05 18:27] VITALS: BP 137/82
--- NOTE | 2019-05-05 18:27 | NUR ---
dPatient discharged to home in stable condition. Written and verbal after care instructions given. Patient verbalizes understanding of instruction.
== END 2019-05-05 18:28 | disposition home or self-care (01) ==
LOC: ER 17:00
DX: G43.909 Migraine, unspecified, not intractable, without status migrainosus (principal); G62.9 Polyneuropathy, unspecified; I10 Essential (primary) hypertension; E78.5 Hyperlipidemia, unspecified; F41.9 Anxiety disorder, unspecified; Z96.652 Presence of left artificial knee joint; Z88.0 Allergy status to penicillin; Z88.8 Allergy status to other drugs, medicaments and biological substances; Z87.891 Personal history of nicotine dependence; Z79.82 Long term (current) use of aspirin
CPT/HCPCS: 96372; 99283; J1630

== ENCOUNTER 2019-07-28 13:09 | Emergency (ER) | payer MEDICARE, OTHER ==
[~2019-07-28] VITALS: Ht 160 cm; Wt 90.7 kg
--- NOTE | 2019-07-28 13:14 | NUR ---
PT BIB SON C/O CHEST PAIN PRESSURE LIKE SINCE YESTERDAY, PT IS AAOX3, NOT IN RESPIRATORY DISTRESS, HOOKED TO MONITOR, KEPT RESTED AND COMFORTABLE, WILL CONTINUE TO MONITOR.
--- NOTE | 2019-07-28 13:24 | NUR ---
PT SEEN AND EXAMINED BY
[2019-07-28] MEDS ORDERED: ASPIRIN 325 MG TABLET PO ONE (13:30)
[2019-07-28] MEDS ORDERED: NITROGLYCERIN PACKET 1 GM PACKET TD ONE (13:30)
--- NOTE | 2019-07-28 13:35 | NUR ---
IV LINE ESTABLISHED, BLOOD DRAWN AND SENT TO LAB.
[2019-07-28 13:36] LABS: BASOPHILS # (AUTO) 0.1 /CMM (0.0-0.2); BASOPHILS % (AUTO) 0.9 % (0.0-2.0); EOSINOPHILS % (AUTO) 12.7 % (0.0-6.0); HEMATOCRIT 36 % (33-45); HEMOGLOBIN 11.7 g/dL (11.5-14.8); LYMPHOCYTES # (AUTO) 2.2 /CMM (0.8-4.8); LYMPHOCYTES % (AUTO) 29.1 % (20.0-44.0); MEAN CORPUSCULAR HGB CONC 33 g/dl (31.0-36.0); MEAN CORPUSCULAR VOLUME 93 fL (82-100); MONOCYTES # (AUTO) 0.5 /CMM (0.1-1.30); MONOCYTES % (AUTO) 7.3 % (2.0-12.0); NEUTROPHILS # (AUTO) 3.7 /CMM (1.8-8.9); PLATELET COUNT (AUTO) 262 /CMM (150-450); RED BLOOD CELL COUNT(AUTO) 3.83 MIL/uL (4.0-5.2); WHITE BLOOD COUNT (AUTO) 7.4 K/uL (4.3-11.0)
[2019-07-28] MEDS ORDERED: NITROGLYCERIN PACKET 1 GM PACKET ONE (13:42)
[2019-07-28] MEDS ORDERED: ASPIRIN 81 MG TAB.CHEW ONE ×2 (13:42→13:44)
[2019-07-28 13:53] LABS: ALBUMIN 3.7 g/dL (3.4-5.0); BILIRUBIN,TOTAL 0.2 mg/dL (0.2-1.0); POTASSIUM 4.1 mmol/L (3.5-5.1); TOTAL PROTEIN, SERUM 6.8 g/dL (6.4-8.2)
[2019-07-28] MEDS ORDERED: oxyCODONE/APAP (5/325 MG) 1 UDTAB TABLET PO ONE (14:30)
[2019-07-28 14:48] LABS: BILIRUBIN,DIRECT 0.1 mg/dL (0.0-0.2); CALCIUM, SERUM 8.5 mg/dL (8.5-10.1); CREATININE 0.9 mg/dL (0.6-1.3)
[2019-07-28] MEDS ORDERED: oxyCODONE/APAP (5/325 MG) 1 UDTAB TABLET ONE (15:03)
[2019-07-28] MEDS ORDERED: KETOROLAC TROMETHAMINE INJ 30 MG/ML VIAL ONE (15:07)
[2019-07-28] MEDS ORDERED: HALOPERIDOL LACTATE INJ 5 MG/ML VIAL ONE (15:28)
[2019-07-28] MEDS ORDERED: HALOPERIDOL LACTATE INJ 5 MG/ML VIAL IV ONE (15:30)
[2019-07-28] MEDS ORDERED: LIDOCAINE PATCH (16:11)
[2019-07-28] MEDS ORDERED: RIZA10TA27 PO (16:11)
[2019-07-28] MEDS ORDERED: GABA-532 PO (16:11)
[2019-07-28] MEDS ORDERED: MIRT15TA PO (16:11)
[2019-07-28] MEDS ORDERED: ERYT3.5O9 EACHEYE (16:11)
[2019-07-28] MEDS ORDERED: SUMA100T16 PO (16:11)
[2019-07-28] MEDS ORDERED: BENZ-13 PO (16:11)
[2019-07-28] MEDS ORDERED: FURO-145 PO (16:11)
[2019-07-28] MEDS ORDERED: CARB15DR OP (16:11)
[2019-07-28] MEDS ORDERED: DOXY50CA2 PO (16:11)
[2019-07-28] MEDS ORDERED: MELO-105 PO (16:11)
[2019-07-28] MEDS ORDERED: KETO10DR3 OP (16:11)
[2019-07-28] MEDS ORDERED: DICL100G16 TP (16:11)
[2019-07-28] MEDS ORDERED: AZEL137S7 NS (16:11)
[2019-07-28] MEDS ORDERED: VALA100026 PO (16:11)
[2019-07-28] MEDS ORDERED: TROL85CR9 TP (16:11)
--- NOTE | 2019-07-28 16:41 | NUR ---
Patient does not wish to proceed with medical care recommended by . Patient given information related to possible complications, up to and including , which could occur as a result of leaving the hospital at this time. Patient verbalizes understanding of risks involved due to leaving against medical advice. Patient has signed AMA form.
[2019-07-28 16:42] VITALS: BP 133/82
== END 2019-07-28 16:43 | disposition left against medical advice (07) ==
LOC: ER 13:09
DX: I21.4 Non-ST elevation (NSTEMI) myocardial infarction (principal); R07.89 Other chest pain; I10 Essential (primary) hypertension; E78.5 Hyperlipidemia, unspecified; G43.909 Migraine, unspecified, not intractable, without status migrainosus; F41.9 Anxiety disorder, unspecified; Z96.652 Presence of left artificial knee joint; Z79.899 Other long term (current) drug therapy; Z88.0 Allergy status to penicillin; Z88.8 Allergy status to other drugs, medicaments and biological substances; Z87.891 Personal history of nicotine dependence; Z79.82 Long term (current) use of aspirin
CPT/HCPCS: 36415; 71045; 80048; 80076; 84484; 85025; 93005; 96372; 99284; J1630; J1885

== ENCOUNTER 2019-08-26 11:19 | Emergency (ER) | payer MEDICARE, OTHER ==
[~2019-08-26] VITALS: Ht 160 cm; Wt 81.6 kg
[~2019-08-26 11:19] MED LIST changes: +AZEL137S7 NS; +BENZ-13 PO; +CARB15DR OP; +DICL100G16 TP; +DOXY50CA2 PO; +ERYT3.5O9 EACHEYE; +FURO-145 PO; +GABA-532 PO; +KETO10DR3 OP; +LIDOCAINE PATCH; +MELO-105 PO; +MIRT15TA PO; +RIZA10TA27 PO; +SUMA100T16 PO; +TROL85CR9 TP; +VALA100026 PO
--- NOTE | 2019-08-26 11:32 | NUR ---
SATHYA FOR HEADACHE X 1 DAYS, -NV, pt aaox4, -sob, nad noted, vss, pending md acosta
[2019-08-26 11:59] LABS: BASOPHILS % (AUTO) 0.8 % (0.0-2.0); EOSINOPHILS % (AUTO) 0.3 % (0.0-6.0); HEMATOCRIT 35 % (33-45); HEMOGLOBIN 11.7 g/dL (11.5-14.8); LYMPHOCYTES # (AUTO) 1.3 /CMM (0.8-4.8); LYMPHOCYTES % (AUTO) 21.2 % (20.0-44.0); MEAN CORPUSCULAR HGB CONC 33 g/dl (31.0-36.0); MEAN CORPUSCULAR VOLUME 91 fL (82-100); MONOCYTES # (AUTO) 0.3 /CMM (0.1-1.30); MONOCYTES % (AUTO) 5.5 % (2.0-12.0); NEUTROPHILS # (AUTO) 4.3 /CMM (1.8-8.9); NEUTROPHILS % (AUTO) 72.2 % (43.0-81.0); PLATELET COUNT (AUTO) 226 /CMM (150-450); RED BLOOD CELL COUNT(AUTO) 3.91 MIL/uL (4.0-5.2); WHITE BLOOD COUNT (AUTO) 5.9 K/uL (4.3-11.0)
[2019-08-26] MEDS ORDERED: HALOPERIDOL LACTATE INJ 5 MG/ML VIAL IV ONE (12:00)
[2019-08-26] MEDS ORDERED: IV NS 0.9% 1,000 ML BAG IV ONE (12:00)
[2019-08-26 12:12] LABS: CALCIUM, SERUM 9.3 mg/dL (8.5-10.1); CARBON DIOXIDE 27 mmol/L (21-32); CHLORIDE 89 mmol/L (98-107); CREATININE 0.6 mg/dL (0.6-1.3); GLUCOSE 127 mg/dL (74-106); POTASSIUM 3.6 mmol/L (3.5-5.1); SODIUM SERUM 124 mmol/L (136-145); UREA NITROGEN, BLOOD 8 mg/dL (7-18)
[2019-08-26] MEDS ORDERED: HALOPERIDOL LACTATE INJ 5 MG/ML VIAL ONE (12:13)
[2019-08-26 12:17] LABS: ALANINE AMINOTRANSFERASE 23 U/L (12-78); ALBUMIN 3.8 g/dL (3.4-5.0); ALKALINE PHOSPHATASE 50 U/L (46-116); ASPARTATE AMINOTRANSFERASE 17 U/L (15-37); BILIRUBIN,TOTAL 0.4 mg/dL (0.2-1.0); TOTAL PROTEIN, SERUM 6.9 g/dL (6.4-8.2)
[2019-08-26 12:20] LABS: APPEARANCE,URINE Clear (CLEAR); BILIRUBIN,URINE Negative (NEGATIVE); BLOOD, URINE Moderate Ery/uL (NEGATIVE); COLOR,URINE Yellow (YELLOW); KETONES,URINE 15 (NEGATIVE); LEUKOCYTE ESTERASE ,URINE Negative (NEGATIVE); NITRITE, URINE Negative (NEGATIVE); PROTEIN,URINE Negative (NEGATIVE); UGLUCOSE Negative (NEGATIVE); UROBILINOGEN,URINE 0.2 EU/dL (0.2)
[2019-08-26] MEDS ORDERED: METOCLOPRAMIDE HCL 10 MG/2 ML VIAL ONE (12:36)
[2019-08-26 12:55] VITALS: BP 150/75
[2019-08-26] MEDS ORDERED: METOCLOPRAMIDE HCL 10 MG/2 ML VIAL IV ONE (13:00)
[2019-08-26 13:01] LABS: BACTERIA,URINE Rare /HPF (None Seen); WBC,URINE NONE SEEN /HPF (0-3)
[2019-08-26 13:02] LABS: SQUAMOUS EPITHELIAL CELL,UR None Seen /HPF (None Seen)
--- NOTE | 2019-08-26 13:09 | NUR ---
Patient discharged to home in stable condition. Written and verbal after care instructions given. Patient verbalizes understanding of instruction. IV removed. Catheter intact and site benign. Pressure and 4x4 applied to site. No bleeding noted.
== END 2019-08-26 13:11 | disposition home or self-care (01) ==
LOC: ER 11:21
DX: G43.909 Migraine, unspecified, not intractable, without status migrainosus (principal); E87.1 Hypo-osmolality and hyponatremia; R31.29 Other microscopic hematuria; I10 Essential (primary) hypertension; E78.5 Hyperlipidemia, unspecified; F41.9 Anxiety disorder, unspecified; Z98.890 Other specified postprocedural states; Z88.0 Allergy status to penicillin; Z88.8 Allergy status to other drugs, medicaments and biological substances; Z79.899 Other long term (current) drug therapy; Z79.82 Long term (current) use of aspirin
CPT/HCPCS: 36415; 80053; 81001; 84484; 85025; 93005; 96374; 96375; 99284; J1630; J2765; J7030 ×2; 81000-TC

== ENCOUNTER 2020-12-13 09:36 | Emergency (ER) | payer MEDICARE, OTHER ==
[~2020-12-13] VITALS: Ht 160 cm; Wt 90.7 kg
[~2020-12-13 09:36] MED LIST changes: +KETO10DR3 EACHEYE; -KETO10DR3 OP; +MIRT-121 PO; -MIRT15TA PO
--- NOTE | 2020-12-13 09:54 | NUR ---
Pablo garcia in [facility] - 12/13/[address] ROSS AT [facility] FOR BLOOD DRAW.
--- NOTE | 2020-12-13 09:56 | NUR ---
THE PATIENT IS BIB HER SON DIZZINESS X 1 WEEK, CHEST PAIN AND WORSENING SOB X 3 DAYS. THE PATIENT RATES CHEST PAIN 5/10. THE PATIENT IS IN ROOM AIR. RESPIRATION REGULAR AND UNLABORED BUT WITH COMPLAIN OF SOB. THE PATIENT`S OXYGEN SATURATION IN ROOM AIR IS 100%. THE PATIENT IS ATTACHED ON A MONITOR, PROVIDED WITH A WARM BLANKET. WILL CONTINUE TO MONITOR.
--- NOTE | 2020-12-13 09:58 | NUR ---
DR ROSS AT BEDSIDE FOR EVAL.
--- NOTE | 2020-12-13 10:15 | NUR ---
NON LICENSED NUCLEAR PLANT OPERATOR AT BEDSIDE FOR CHEST XRAY.
[2020-12-13 10:17] LABS: EOSINOPHILS % (AUTO) 5.7 % (0.0-6.0); HEMATOCRIT 35 % (33-45); HEMOGLOBIN 11.4 g/dL (11.5-14.8); LYMPHOCYTES % (AUTO) 22.3 % (20.0-44.0); MEAN CORPUSCULAR HGB CONC 33 g/dl (31.0-36.0); MEAN CORPUSCULAR VOLUME 97 fL (82-100); MONOCYTES # (AUTO) 0.4 /CMM (0.1-1.30); MONOCYTES % (AUTO) 9.8 % (2.0-12.0); NEUTROPHILS # (AUTO) 2.8 /CMM (1.8-8.9); NEUTROPHILS % (AUTO) 61.2 % (43.0-81.0); PLATELET COUNT (AUTO) 231 /CMM (150-450); RED BLOOD CELL COUNT(AUTO) 3.56 MIL/uL (4.0-5.2); WHITE BLOOD COUNT (AUTO) 4.6 K/uL (4.3-11.0)
[2020-12-13 10:20] LABS: CALCIUM, SERUM 8.8 mg/dL (8.5-10.1); CARBON DIOXIDE 28 mmol/L (21-32); CHLORIDE 100 mmol/L (98-107); GLUCOSE 124 mg/dL (74-106); POTASSIUM 4.3 mmol/L (3.5-5.1); SODIUM SERUM 136 mmol/L (136-145); UREA NITROGEN, BLOOD 17 mg/dL (7-18)
[2020-12-13] MEDS ORDERED: LIDO30AD10 TP (12:01)
[2020-12-13] MEDS ORDERED: ONDA4TAB5 PO (12:01)
[2020-12-13] MEDS ORDERED: GABA-532 PO (12:01)
[2020-12-13] MEDS ORDERED: ASPI-1420 PO (12:01)
[2020-12-13] MEDS ORDERED: LORA10TA7 PO (12:01)
[2020-12-13] MEDS ORDERED: TRAZ-252 PO (12:01)
[2020-12-13] MEDS ORDERED: NALO4SPR (12:04)
[2020-12-13 13:03] VITALS: BP 141/78
--- NOTE | 2020-12-13 13:03 | NUR ---
Patient discharged to home in stable condition. Written and verbal after care instructions given. Patient verbalizes understanding of instruction.IV removed. Catheter intact and site benign. Pressure and 4x4 applied to site. No bleeding noted.
== END 2020-12-13 13:04 | disposition home or self-care (01) ==
LOC: ER 09:39
DX: R07.89 Other chest pain (principal); G43.909 Migraine, unspecified, not intractable, without status migrainosus; I10 Essential (primary) hypertension; E78.5 Hyperlipidemia, unspecified; F41.9 Anxiety disorder, unspecified; G62.9 Polyneuropathy, unspecified; M81.0 Age-related osteoporosis without current pathological fracture; Z98.890 Other specified postprocedural states; Z88.0 Allergy status to penicillin; Z88.2 Allergy status to sulfonamides; Z88.5 Allergy status to narcotic agent; Z88.6 Allergy status to analgesic agent; Z88.8 Allergy status to other drugs, medicaments and biological substances; Z87.891 Personal history of nicotine dependence; Z79.899 Other long term (current) drug therapy; Z79.82 Long term (current) use of aspirin
CPT/HCPCS: 36415; 70450-TC; 71045-TC; 80048-TC; 84484-TC; 85025-TC

== ENCOUNTER 2021-02-11 03:42 | Inpatient (IN) | payer MEDICARE, OTHER ==
[~2021-02-11] VITALS: Ht 160 cm; Wt 93.6 kg
[~2021-02-11 03:42] MED LIST changes: -ASPI-1169 PO; +ASPI-1420 PO; -DOXY50CA2 PO; +LIDO30AD10 TP; -LIDOCAINE PATCH; +LORA10TA7 PO; +NALO4SPR; +ONDA4TAB5 PO; -RANI300T4 PO; +TRAZ-252 PO; -TROL85CR9 TP
--- NOTE | 2021-02-11 04:37 | NUR ---
PATIENT CAME TO ER BED 2 C/O LEFT SHOULDER PAIN S/P FALL 2x DAYS AGO. PATIENT UNABLE TO LIFT HER ARM, BUT IS ABLE TO MOVE HER FINGERS, HANDS, AND WRIST. EQUAL RADIAL PULSE, WITH EQUAL SENSATION ON BOTH ARMS. PATIENT IS ALERT AND ORIENTED x4. DENIES SOB. BREATHING EVENLY AND UNLABORED ON ROOM AIR. CONNECTED TO THE MONITOR.
[2021-02-11 04:55] LABS: CALCIUM, SERUM 8.1 mg/dL (8.5-10.1); CREATININE 0.8 mg/dL (0.6-1.3); POTASSIUM 3.9 mmol/L (3.5-5.1)
[2021-02-11 05:05] LABS: BASOPHILS % (AUTO) 0.4 % (0.0-2.0); HEMATOCRIT 35 % (33-45); HEMOGLOBIN 11.8 g/dL (11.5-14.8); LYMPHOCYTES # (AUTO) 1.1 /CMM (0.8-4.8); LYMPHOCYTES % (AUTO) 12.2 % (20.0-44.0); MEAN CORPUSCULAR HGB CONC 34 g/dl (31.0-36.0); MEAN CORPUSCULAR VOLUME 96 fL (82-100); MONOCYTES # (AUTO) 0.9 /CMM (0.1-1.30); MONOCYTES % (AUTO) 10.4 % (2.0-12.0); NEUTROPHILS # (AUTO) 6.6 /CMM (1.8-8.9); PLATELET COUNT (AUTO) 216 /CMM (150-450); RED BLOOD CELL COUNT(AUTO) 3.63 MIL/uL (4.0-5.2); WHITE BLOOD COUNT (AUTO) 8.7 K/uL (4.3-11.0)
--- NOTE | 2021-02-11 05:25 | NUR ---
BILLY GUEVARA: [phone]
[2021-02-11] MEDS ORDERED: ASPIRIN 325 MG TABLET PO ONE (05:30)
[2021-02-11] MEDS ORDERED: MORPHINE SULFATE INJ 4 MG/ML DISP.SYRIN ONE (05:38)
[2021-02-11] MEDS ORDERED: ASPIRIN 325 MG TABLET ONE (05:38)
[2021-02-11] MEDS ORDERED: ONDANSETRON HCL/PF 4 MG/2 ML VIAL ONE (05:38)
[2021-02-11] MEDS ORDERED: MORPHINE SULFATE INJ 2 MG/ML DISP.SYRIN IV ONE (06:00)
[2021-02-11] MEDS ORDERED: ONDANSETRON HCL/PF 4 MG/2 ML VIAL IV ONE (06:00)
--- NOTE | 2021-02-11 07:03 | NUR ---
patient signed consent for closed reduction of left shoulder with moderate sedation.
[2021-02-11] MEDS ORDERED: PROPOFOL 20 ML IV ONE (07:10)
--- NOTE | 2021-02-11 07:14 | NUR ---
100mg of IV propofol administered VIA IV per MD's verbal order
--- NOTE | 2021-02-11 07:15 | NUR ---
unable to print out strips from manager monitoring, patient remains in NSR 60s during the procedure.
--- NOTE | 2021-02-11 07:20 | NUR ---
Patient woke up, aa/ox3, verbally responsive, breathing even and unlabored, left shoulder on a sling. VSS
[2021-02-11] MEDS ORDERED: PROPOFOL 200 MG/20 ML VIAL IV ONE (07:30)
[2021-02-11 08:00] VITALS: BP 130/73
--- NOTE | 2021-02-11 08:10 | NUR ---
BED 307-2
--- NOTE | 2021-02-11 08:28 | NUR ---
covid negative per lab
--- NOTE | 2021-02-11 08:35 | NUR ---
REPORT GIVEN TO LUZ JAY FOR RODRIGUEZ.
[2021-02-11] MEDS ORDERED: BISACODYL (5 MG) 5 MG TABLET.DR PO PRN (09:00)
[2021-02-11] MEDS ORDERED: ASPIRIN EC 81 MG TABLET.DR PO SCH (09:00)
[2021-02-11] MEDS: PANTOPRAZOLE 40 MG TABLET.DR PO SCH ×2 (09:00→09:47)
[2021-02-11] MEDS: ATORVASTATIN 10 MG TABLET PO SCH ×2 (09:00→09:47)
[2021-02-11] MEDS ORDERED: BENZONATATE 100 MG CAPSULE PO PRN (09:00)
[2021-02-11] MEDS: LIDOCAINE 5% (PATCH) 1 EA PATCH TP SCH ×2 (09:00→09:48)
[2021-02-11] MEDS: LORATADINE 10 MG TABLET PO SCH ×2 (09:00→09:48)
[2021-02-11] MEDS: METOPROLOL TARTRATE 25 MG TABLET PO SCH ×3 (09:00→20:52)
--- NOTE | 2021-02-11 09:12 | NUR ---
PATIENT TRANSFERRED TO ROOM 307-2 VIA ACLS PROTOCOL. PATIENT IN STABLE CONDITION. LEFT ARM IMMOBILIZED WITH A SLING.
--- NOTE | 2021-02-11 09:12 | NUR ---
DENTAL HYGIENE INSTRUCTOR NOTE BROUGHT PATIENT VIA [employer]. RECEIVED REPORT FROM ISABELLE. PT IS A/O X3-4. 02 NC ON 2 L/M. NO SOB NOTED WHEN AT REST BUT DIFFICULTY OF BREATHING IS PRESENT WHEN WALKING. PT IS AMBULATORY WITH CANE. Addendum: 02/11/21 at 1458 by LUZ MILLER RN CONT* IV ACCESS ON L WRIST #18 G & R WRIST #18 G, BOTH INTACT. L ARM HAS A SLING. SAFETY MEASURES MAINTAINED. BED IN LOWEST POSITION, BRAKES LOCKED. SIDE RAILS UP X2. CALL LIGHT WITHIN REACH. WILL CONTINUE PLAN OF CARE. Addendum: 02/11/21 at 1512 by LUZ MILLER RN PT'S VS BP 130/73 P 66 RR 20 T 97.9 SA02 100%
[2021-02-11 09:58] LABS: THYROID STIMULATING HORMONE 1.591 uIU/mL (0.358-3.74)
[2021-02-11] MEDS ORDERED: NITROGLYCERIN 0.4 MG/TAB BOTTLE ONE (10:15)
[2021-02-11] MEDS ORDERED: IOHEXOL-350 100 ML VIAL IV ONE ×2 (10:15→10:38)
[2021-02-11] MEDS ORDERED: IV NS 0.9% 250 ML IV ONE (10:16)
[2021-02-11] MEDS ORDERED: CT SWABBABLE VALVE TRANS SET 1 EA INFUS.SET MC ONE (10:16)
[2021-02-11] MEDS ORDERED: METOPROLOL TARTRATE INJ 5 MG/5 ML AMPUL ONE ×2 (10:16→10:44)
[2021-02-11] MEDS: METOPROLOL TARTRATE INJ 5 MG/5 ML AMPUL IVP PRN ×4 (10:20→10:45)
[2021-02-11] MEDS ORDERED: NITROGLYCERIN 0.4 MG/TAB BOTTLE SL ONE (10:30)
--- NOTE | 2021-02-11 10:52 | NUR ---
RN NOTES; POST CTA: metoprolol 20mg given IVP and nitrostat 1SL given per protocol, Patient able to tolerate the procedure no adverse reaction noted. Patient transferred to floor and report given to floor nurse. Patient remains stable at this time.
[2021-02-11 11:28] LABS: MAGNESIUM 1.8 mg/dL (1.8-2.4)
[2021-02-11] MEDS: ENOXAPARIN SODIUM 100 MG/ML DISP.SYRIN SQ SCH ×2 (12:43→20:54)
[2021-02-11] MEDS ORDERED: MAG HYDROX/AL HYDROX/SIMETH 30 ML UDC PO PRN (13:00)
[2021-02-11] MEDS ORDERED: MAGNESIUM HYDROXIDE 30 ML UDC PO PRN (13:00)
[2021-02-11] MEDS ORDERED: ONDANSETRON HCL/PF 4 MG/2 ML VIAL IVP PRN (13:00)
[2021-02-11] MEDS ORDERED: NITROGLYCERIN 0.4 MG/TAB BOTTLE SL PRN (13:00)
[2021-02-11] MEDS: MELOXICAM 7.5 MG TABLET PO SCH (13:04)
[2021-02-11 13:25] LABS: CHOLESTEROL 153 mg/dL (<200); HDL CHOLESTEROL 73 mg/dL (40-60); LDL 61 mg/dL (0-99); TRIGLYCERIDES 97 mg/dL (30-150)
--- NOTE | 2021-02-11 14:31 | NUR ---
CONTAINER SHOP WELDER NOTE TROPONIN 1.783, DR. KRAUSE IS MADE AWARE
--- NOTE | 2021-02-11 14:37 | NUR ---
GLOVE WRAPPER NOTE PATIENT NEEDS PT AND OT EVAL PER DR. BOBO, RECEIVED ORDER AND CARRIED OUT.
[2021-02-11 15:57] VITALS: BP 144/76
[2021-02-11] MEDS: oxyCODONE IR immediate release 5 MG PO PRN ×2 (16:24→21:56)
--- NOTE | 2021-02-11 16:28 | NUR ---
ANY COMMODITY SALES DELIVERER NOTE PATIENT WAS ON 10/10 GENERALIZED PAIN. PT BECOMES ANXIOUS AND WORRIED. MD KRAUSE IS MADE AWARE. OXY IR 10 MG PO AND ATIVAN 2 MG PO GIVEN. WILL CONTINUE TO MONITOR THROUGHOUT THE SHIFT.
[2021-02-11] MEDS ORDERED: SUMATRIPTAN SUCCINATE 100 MG TABLET PO PRN (16:30)
[2021-02-11] MEDS ORDERED: FUROSEMIDE 20 MG TABLET PO PRN (16:30)
[2021-02-11] MEDS ORDERED: ALBUTEROL FS 2.5 MG/3 ML VIAL.NEB IH PRN (16:30)
[2021-02-11] MEDS ORDERED: LORAZEPAM 1 MG TABLET PO PRN (16:30)
[2021-02-11] MEDS ORDERED: DICLOFENAC TOPICAL 100 GM GEL..GM. TP PRN (16:30)
--- NOTE | 2021-02-11 16:42 | NUR ---
SOFTWARE SALES CONSULTANT NOTE SOME HOME MEDS OF THE PT ARE NOT AVAILABLE IN THE PHARMACY PER TAYLOR. ASKED THE PT IF SHE CAN ASK SOMEONE TO BRING SOME OF HER MEDICATIONS. PT SAID "NO, THERE'S NO WAY I'M GONNA BRING MY MEDICATIONS HERE, THAT IS NOT RIGHT"
[2021-02-11] MEDS ORDERED: Medication Not On Formulary EA (Ketotifen Fumarate (Alaway) 1 DROP) EACHEYE SCH (17:00)
[2021-02-11] MEDS: POLYVINYL ALCOHOL 15 ML BOTTLE EACHEYE SCH (18:26)
[2021-02-11] MEDS: AZELASTINE NASAL SPRAY 30 ML BOTTLE NS SCH (18:26)
--- NOTE | 2021-02-11 18:44 | NUR ---
ACO COORDINATOR CLOSING NOTE PATIENT RESTING IN BED. NC 02 @ 2 L/M. IN NO APPARENT DISTRESS AT THIS TIME. TELE READING SHOWS SR 69. IV ACCESS ON L WRIST #18 G, INTACT AND PATENT. L ARM HAS A SLING. DUE MEDS GIVEN ORDERED. ABLE TO MAKE NEEDS KNOWN. SAFETY MEASURES MAINTAINED. BED IN LOWEST POSITION, BRAKES LOCKED. SIDE RAILS UP X2. CALL LIGHT WITHIN REACH. WILL ENDORSE CONTINUITY OF CARE TO ONCOMING SHIFT.
--- NOTE | 2021-02-11 19:30 | NUR ---
RN OPENING NOTE HELPED PATIENT AMBULATE TO THE BATHROOM WITH A CANE. SOB OBSERVED UPON EXERTION/AMBULATION. PATIENT CURRENTLY RECEIVING 2 L OF OXYGEN SUPPLEMENTATION, TOLERATING WITH 96% O2 SAT. TELE MONITOR READS SR WITH [address] ME[address]: BED IN LOCKED AND LOWEST POSITION, SIDE RAILS UP X 2, CANE WITHIN REACH. CALL LIGHT WITHIN REACH, AND BED ALARM ON. WILL MONITOR PATIENT CLOSELY.
[2021-02-11 20:00] VITALS: BP 115/93
[2021-02-11] MEDS ORDERED: MIRTAZAPINE 15 MG TABLET PO SCH (22:00)
[2021-02-11] MEDS ORDERED: ERYTHROMYCIN BASE OPHTH 3.5 GM TUBE EACHEYE SCH (22:00)
[2021-02-11] MEDS ORDERED: TRAZODONE 50 MG TABLET PO SCH (22:00)
[2021-02-11] MEDS ORDERED: ATORVASTATIN 40 MG TABLET PO SCH (22:00)
[2021-02-11] MEDS ORDERED: IV NS 0.9% 1,000 ML IV ONE (22:00)
--- NOTE | 2021-02-11 22:14 | NUR ---
PATIENT REFUSING IV FLUIDS, EDUCATION PROVIDED BUT IS STILL REFUSING. CHARGE AWARE.
[2021-02-12] VITALS: BP 95/86
[2021-02-12] MEDS: oxyCODONE IR immediate release 5 MG PO PRN (03:12)
[2021-02-12 04:00] VITALS: BP 114/81
--- NOTE | 2021-02-12 05:30 | NUR ---
PATIENT REQUESTING FOR STRONGER PAIN MEDICINE, CONSULTED CUB REPORTER HOSPITALIST RE PATIENT'S SHOULDER PAIN, GAVE NO ADVICE AND WILL LET DAY MD HANDLE IT. PATIENT HAS YET TO SEE PAIN MANAGEMENT CONSULT.
[2021-02-12 06:24] LABS: BASOPHILS % (AUTO) 0.6 % (0.0-2.0); EOSINOPHILS % (AUTO) 8.3 % (0.0-6.0); HEMATOCRIT 35 % (33-45); HEMOGLOBIN 11.6 g/dL (11.5-14.8); LYMPHOCYTES % (AUTO) 19.6 % (20.0-44.0); MEAN CORPUSCULAR HGB CONC 33 g/dl (31.0-36.0); MEAN CORPUSCULAR VOLUME 99 fL (82-100); MONOCYTES # (AUTO) 0.8 /CMM (0.1-1.30); MONOCYTES % (AUTO) 15.3 % (2.0-12.0); NEUTROPHILS # (AUTO) 2.8 /CMM (1.8-8.9); NEUTROPHILS % (AUTO) 56.2 % (43.0-81.0); PLATELET COUNT (AUTO) 192 /CMM (150-450); RED BLOOD CELL COUNT(AUTO) 3.57 MIL/uL (4.0-5.2); WHITE BLOOD COUNT (AUTO) 5.1 K/uL (4.3-11.0)
--- NOTE | 2021-02-12 06:45 | NUR ---
RN CLOSING NOTE PATIENT NOT IN ANY APPARENT DISTRESS, A/O X 4. TOLERATING ROOM AIR 97%, STILL EXPERIENCES SOB UPON EXERTION. SHOULDER SLING STILL BEING WORN BY PATIENT ON THE LEFT SHOULDER. IV ACCESS INTACT. PAIN MANAGED NEEDED: OXY IR GIVEN AT 2155, 311 FOR SHOULDER AND GENERALIZED PAIN 06/29. IMITREX GIVEN AT 2052 FOR MIGRAINE. ALL NEEDS MET AND ATTENDED. ALL SAFETY PRECAUTIONS MAINTAINED. WILL ENDORSE TO DAY SHIFT NURSE FOR RODRIGUEZ.
--- NOTE | 2021-02-12 07:15 | NUR ---
HOG DROPPER OPENING NOTES RECEIVED PATIENT RESTING IN BED, ASLEEP, NOT IN ANY FORM OF ACUTE DISTRESS NOTED AT THIS TIME. EASILY AWAKEN BY VERBAL AND TACTILE STIMULI. NC 02 @ 2 L/M. TELE READING SHOWS SR ON 80'S. IV ACCESS ON L WRIST #18 G, INTACT AND PATENT AND FLUSHES WELL. L ARM HAS A SLING. ABLE TO MAKE NEEDS KNOWN. SAFETY MEASURES MAINTAINED AND OBSERVED: BED IN LOWEST LOCKED POSITION, SIDE RAILS UP X2. CALL LIGHT WITHIN REACH. WILL CONTINUE TO MONITOR PATIENT'S CURRENT STATUS.
[2021-02-12 07:16] LABS: ALBUMIN 3.4 g/dL (3.4-5.0); BILIRUBIN,TOTAL 0.5 mg/dL (0.2-1.0); CREATININE 0.8 mg/dL (0.6-1.3); MAGNESIUM 2.2 mg/dL (1.8-2.4); PHOSPHORUS 3.7 mg/dL (2.5-4.9); POTASSIUM 3.8 mmol/L (3.5-5.1); TOTAL PROTEIN, SERUM 6.5 g/dL (6.4-8.2)
[2021-02-12] MEDS ORDERED: PANTOPRAZOLE 40 MG TABLET.DR PO SCH (07:30)
[2021-02-12 08:00] VITALS: BP 137/79
[2021-02-12 08:21] LABS: EOSINOPHILS % (MANUAL) 9 % (0-4); LYMPHOCYTES % (MANUAL) 15 % (16-48); MONOCYTES % (MANUAL) 3 % (0-11.0); NEUTROPHILS % (MANUAL) 73 (42-76)
[2021-02-12] MEDS: LIDOCAINE 5% (PATCH) 1 EA PATCH TP SCH ×2 (08:39→09:00)
[2021-02-12] MEDS: PANTOPRAZOLE 40 MG TABLET.DR PO SCH (08:44)
[2021-02-12] MEDS: LORATADINE 10 MG TABLET PO SCH (08:44)
[2021-02-12] MEDS: MELOXICAM 7.5 MG TABLET PO SCH (08:44)
[2021-02-12 08:45] VITALS: BP 137/79
[2021-02-12] MEDS: METOPROLOL TARTRATE 25 MG TABLET PO SCH (08:45)
[2021-02-12] MEDS ORDERED: Medication Not On Formulary EA (Dexlansoprazole (Dexilant) 30 MG) PO SCH (09:00)
[2021-02-12] MEDS: AZELASTINE NASAL SPRAY 30 ML BOTTLE NS SCH (09:00)
[2021-02-12] MEDS ORDERED: VALACYCLOVIR HCL 500 MG TABLET PO SCH (09:00)
[2021-02-12] MEDS ORDERED: ASPIRIN 81 MG TAB.CHEW PO SCH (09:00)
[2021-02-12] MEDS: POLYVINYL ALCOHOL 15 ML BOTTLE EACHEYE SCH (09:00)
[2021-02-12] MEDS ORDERED: POLYETHYLENE GLYCOL 3350 17 GM POWD.PACK PO SCH (09:00)
[2021-02-12] MEDS ORDERED: RIZATRIPTAN BENZOATE 5 MG PO SCH (09:00)
[2021-02-12] MEDS ORDERED: LISINOPRIL (5MG) 5 MG TABLET PO SCH (09:00)
--- NOTE | 2021-02-12 09:40 | NUR ---
PATIENT IS COMPLAINING OF LEFT SHOULDER PAIN WITH PAIN SCALE OF 8/10. OFFERED PATIENT OXY IR ORDERED BUT PATIENT REFUSED AND TOLD RN THAT IT'S NOT GOING TO WORK. EXPLAINED RISK AND BENEFITS OF MEDICATION, BUT PATIENT STILL REFUSED. INFORMED DR. BOBO REGARDING PATIENT'S CURRENT STATUS.
--- NOTE | 2021-02-12 11:35 | NUR ---
RN NOTES RECEIVED A CALL FROM LAB RELAYING TROPONIN RESULT OF 0.811. RELAYED RESULT TO DR. LANDRUM AND INFORMED ALSO THAT PATIENT VERBALIZED WANTING TO LEAVE AMA. DR. LANDRUM ACKNOWLEDGED.
--- NOTE | 2021-02-12 12:07 | NUR ---
RN NOTES DR. BOBO INFORMED THAT PATIENT WANTS TO GO AMA, DR. BOBO STATED SHE WILL COME AND TALK TO THE PATIENT. PATIENT INFORMED.
--- NOTE | 2021-02-12 12:23 | NUR ---
RN NOTES/AMA PATIENT VERBALIZED THAT SHE WANTED TO GO HOME SOON HER SON BILLY ARRIVES. INFORMED HER THAT DR BOBO WILL COME AND SEE HER BUT SHE REFUSED AND INSISTED TO GO HOME AGAINST MEDICAL ADVICE SOON POSSIBLE DESPITE EXPLAINING RISK AND CONSEQUENCE INVOLVING LEAVING THE HOSPITAL AT THIS TIME, SHE VERBALIZED UNDERSTANDING. DR. BOBO MADE AWARE AND ACKNOWLEDGED. AMA FORM SIGNED BY PATIENT. NAME ARMBAND AND IV ACCESS REMOVED. NO BLEEDING AT SITE NOTED, DRY DRESSING APPLIED TO SITE. ALL BELONGINGS ACCOUNTED FOR AND SIGNED FORM BY PATIENT. PATIENT LEFT UNIT AMBULATORY ACCOMPANIED BY SON BILLY AT 1215.
== END 2021-02-12 12:20 | disposition left against medical advice (07) | DRG 562 ==
LOC: ER 03:44 → TELE 08:32 → MED 02-12 09:45
PROVIDERS: ADMIT Student in an Organized Health Care Education/Training Program; ATTEND Student in an Organized Health Care Education/Training Program
DX: S43.005A Unspecified dislocation of left shoulder joint, initial encounter (principal); I21.A1 Myocardial infarction type 2; J18.9 Pneumonia, unspecified organism; E87.1 Hypo-osmolality and hyponatremia; F32.9 Major depressive disorder, single episode, unspecified; W19.XXXA Unspecified fall, initial encounter; Y92.9 Unspecified place or not applicable; K21.9 Gastro-esophageal reflux disease without esophagitis; Z20.822 Contact with and (suspected) exposure to COVID-19; I10 Essential (primary) hypertension; G43.909 Migraine, unspecified, not intractable, without status migrainosus; E78.5 Hyperlipidemia, unspecified; I25.2 Old myocardial infarction; G62.9 Polyneuropathy, unspecified; M19.90 Unspecified osteoarthritis, unspecified site; M81.0 Age-related osteoporosis without current pathological fracture; F41.9 Anxiety disorder, unspecified; Z88.6 Allergy status to analgesic agent; Z88.5 Allergy status to narcotic agent; Z88.0 Allergy status to penicillin; Z88.2 Allergy status to sulfonamides; Z88.8 Allergy status to other drugs, medicaments and biological substances; Z87.891 Personal history of nicotine dependence; Z85.118 Personal history of other malignant neoplasm of bronchus and lung; Z92.21 Personal history of antineoplastic chemotherapy; Z92.3 Personal history of irradiation; Z96.611 Presence of right artificial shoulder joint; Z90.710 Acquired absence of both cervix and uterus; Z96.652 Presence of left artificial knee joint; Z79.82 Long term (current) use of aspirin; Z79.899 Other long term (current) drug therapy; Z79.891 Long term (current) use of opiate analgesic; Z87.11 Personal history of peptic ulcer disease; K44.9 Diaphragmatic hernia without obstruction or gangrene; J98.4 Other disorders of lung; J45.909 Unspecified asthma, uncomplicated; E86.1 Hypovolemia
CPT/HCPCS: 36415; 71045-TC; 71250-TC; 73030-TC; 73200-TC; 75574; 80048-TC; 80053-TC; 80061-TC; 82728-TC; 83540-TC; 83735-TC; 84100-TC; 84439-TC; 84443-TC; 84484-TC; 85025-TC; 87081-TC; 93307-TC; 97116-TC; 97530-TC; C9803; G0378; G0500; J1650; J2270; J2405; J2704; J3490; J7050; Q9967

== ENCOUNTER 2021-08-31 11:01 | Emergency (ER) | payer MEDICARE, OTHER ==
[~2021-08-31] VITALS: Ht 157.5 cm; Wt 92.1 kg
[~2021-08-31 11:01] MED LIST changes: +AZEL137S7; -AZEL137S7 NS; -GABA-532 PO
--- NOTE | 2021-08-31 11:01 | NUR ---
PT BIB SELF C/O CHEST SILVIA PRESSURE LIKE X 1 WEEK. PT IS AAOX4, NOT IN RESPIRATORY DISTRESS, HOOKED TO BEHAVIORAL INSTRUCTOR, KEPT RESTED AND COMFORTABLE. WILL CONTINUE TO MONITOR.
--- NOTE | 2021-08-31 11:08 | NUR ---
PT SEEN AND EXAMINED BY .
--- NOTE | 2021-08-31 11:20 | NUR ---
GLUE CLAMP OPERATOR AT BEDSIDE FOR XRAY.
--- NOTE | 2021-08-31 11:23 | NUR ---
ER PHLEB AT BEDSIDE FOR BLOOD DRAW.
[2021-08-31 11:42] LABS: BASOPHILS # (AUTO) 0.1 K/uL (0.0-0.2); BASOPHILS % (AUTO) 0.8 % (0.0-2.0); EOSINOPHILS % (AUTO) 13.7 % (0.0-6.0); HEMATOCRIT 37 % (33-45); HEMOGLOBIN 11.9 g/dL (11.5-14.8); LYMPHOCYTES # (AUTO) 1.8 K/uL (0.8-4.8); LYMPHOCYTES % (AUTO) 27.9 % (20.0-44.0); MEAN CORPUSCULAR HGB CONC 32 g/dl (31.0-36.0); MEAN CORPUSCULAR VOLUME 96 fL (82-100); MONOCYTES # (AUTO) 0.5 K/uL (0.1-1.30); MONOCYTES % (AUTO) 8.5 % (2.0-12.0); NEUTROPHILS # (AUTO) 3.1 K/uL (1.8-8.9); NEUTROPHILS % (AUTO) 49.1 % (43.0-81.0); PLATELET COUNT (AUTO) 279 K/uL (150-450); RED BLOOD CELL COUNT(AUTO) 3.84 MIL/uL (4.0-5.2); WHITE BLOOD COUNT (AUTO) 6.4 K/uL (4.3-11.0)
[2021-08-31] MEDS ORDERED: NITROGLYCERIN PACKET 1 GM PACKET ONE (11:54)
[2021-08-31] MEDS ORDERED: CLOPIDOGREL BISULFATE 75 MG TABLET ONE (11:54)
[2021-08-31] MEDS ORDERED: CLOPIDOGREL BISULFATE 75 MG TABLET PO ONE (12:00)
[2021-08-31] MEDS ORDERED: NITROGLYCERIN PACKET 1 GM PACKET TD ONE (12:00)
[2021-08-31 12:05] LABS: ALANINE AMINOTRANSFERASE 22 U/L (12-78); ALBUMIN 3.4 g/dL (3.4-5.0); ALKALINE PHOSPHATASE 59 U/L (46-116); ASPARTATE AMINOTRANSFERASE 14 U/L (15-37); BILIRUBIN,DIRECT 0.1 mg/dL (0.0-0.2); BILIRUBIN,TOTAL 0.3 mg/dL (0.2-1.0); CALCIUM, SERUM 8.6 mg/dL (8.5-10.1); CARBON DIOXIDE 29 mmol/L (21-32); CHLORIDE 102 mmol/L (98-107); CREATININE 1.3 mg/dL (0.6-1.3); GLUCOSE 161 mg/dL (74-106); SODIUM SERUM 138 mmol/L (136-145); TOTAL PROTEIN, SERUM 6.8 g/dL (6.4-8.2); UREA NITROGEN, BLOOD 22 mg/dL (7-18)
[2021-08-31] MEDS ORDERED: VERA120C2 PO (12:14)
[2021-08-31] MEDS ORDERED: GABA-532 PO (12:14)
[2021-08-31] MEDS ORDERED: FAMO-108 PO (12:14)
[2021-08-31] MEDS ORDERED: POLY15DR40 EACHEYE (12:14)
[2021-08-31] MEDS ORDERED: LEVE500T20 PO (12:14)
--- NOTE | 2021-08-31 13:24 | NUR ---
CALLED [facility] FOR DIAL LATHE OPERATOR. ETA 15 MINS.
[2021-08-31 13:49] VITALS: BP 118/58
== END 2021-08-31 13:50 | disposition home or self-care (01) ==
LOC: ER 11:01
DX: R07.9 Chest pain, unspecified (principal); Z20.822 Contact with and (suspected) exposure to COVID-19; Z96.611 Presence of right artificial shoulder joint; Z79.899 Other long term (current) drug therapy; F41.9 Anxiety disorder, unspecified; M19.90 Unspecified osteoarthritis, unspecified site; E78.5 Hyperlipidemia, unspecified; R91.8 Other nonspecific abnormal finding of lung field; G62.9 Polyneuropathy, unspecified; Z85.118 Personal history of other malignant neoplasm of bronchus and lung; I10 Essential (primary) hypertension; Z88.2 Allergy status to sulfonamides; Z87.891 Personal history of nicotine dependence; Z88.6 Allergy status to analgesic agent; Z88.0 Allergy status to penicillin; Z88.8 Allergy status to other drugs, medicaments and biological substances
CPT/HCPCS: 36415; 71045-TC; 80048-TC; 80076-TC; 84484-TC; 85025-TC; C9803

== ENCOUNTER 2022-10-24 14:49 | Emergency (ER) | payer MEDICARE, OTHER ==
[~2022-10-24] VITALS: Ht 157.5 cm; Wt 81.6 kg
[~2022-10-24 14:49] MED LIST changes: -CARB15DR OP; -DICL100G16 TP; +FAMO-108 PO; +GABA-532 PO; +LEVE500T20 PO; -NALO4SPR; +POLY15DR40 EACHEYE; +PROC25SU2 RC; -RIZA10TA27 PO; -VALA100026 PO; +VERA120C2 PO
--- NOTE | 2022-10-24 15:00 | NUR ---
DR BARBOSA AT BEDSIDE
[2022-10-24] MEDS ORDERED: DIAZEPAM 5 MG TABLET ONE (15:17)
[2022-10-24] MEDS: DIAZEPAM 5 MG TABLET PO ONE (15:21)
[2022-10-24] MEDS ORDERED: LORAZEPAM 1 MG TABLET ONE (15:22)
[2022-10-24 15:25] LABS: BASOPHILS % (AUTO) 0.5 % (0.0-2.0); EOSINOPHILS % (AUTO) 22.5 % (0.0-6.0); HEMATOCRIT 38 % (33-45); HEMOGLOBIN 12.1 g/dL (11.5-14.8); LYMPHOCYTES # (AUTO) 1.6 K/uL (0.8-4.8); LYMPHOCYTES % (AUTO) 25.2 % (20.0-44.0); MEAN CORPUSCULAR HGB CONC 32 g/dl (31.0-36.0); MEAN CORPUSCULAR VOLUME 101 fL (82-100); MONOCYTES # (AUTO) 0.7 K/uL (0.1-1.30); MONOCYTES % (AUTO) 10.4 % (2.0-12.0); NEUTROPHILS # (AUTO) 2.7 K/uL (1.8-8.9); NEUTROPHILS % (AUTO) 41.4 % (43.0-81.0); PLATELET COUNT (AUTO) 185 K/uL (150-450); RED BLOOD CELL COUNT(AUTO) 3.77 MIL/uL (4.0-5.2); WHITE BLOOD COUNT (AUTO) 6.5 K/uL (4.3-11.0)
[2022-10-24] MEDS: LORAZEPAM 1 MG TABLET PO ONE (15:25)
[2022-10-24 15:57] LABS: ALBUMIN 3.1 g/dL (3.4-5.0); BILIRUBIN,DIRECT 0.1 mg/dL (0.0-0.2); BILIRUBIN,TOTAL 0.2 mg/dL (0.2-1.0); CALCIUM, SERUM 8.1 mg/dL (8.5-10.1); TOTAL PROTEIN, SERUM 6.1 g/dL (6.4-8.2)
[2022-10-24 16:21] LABS: EOSINOPHILS % (MANUAL) 20 % (0-4); LYMPHOCYTES % (MANUAL) 25 % (16-48); MONOCYTES % (MANUAL) 6 % (0-11.0); NEUTROPHILS % (MANUAL) 49 (42-76)
[2022-10-24] MEDS ORDERED: oxyCODONE IR immediate release 5 MG PO PRN (17:00)
--- NOTE | 2022-10-24 17:02 | NUR ---
[facility] CALLED FOR TRANSPORT, ETA 30-45 MIN PER KRANTHI.
--- NOTE | 2022-10-24 17:04 | NUR ---
SPOKE TO SON. SON (BILLY STEWART) WILL BE IN THE HOUSE ONCE PATIENT IS SENT HOME.
--- NOTE | 2022-10-24 17:32 | NUR ---
IV removed. Catheter intact and site benign. Pressure and 4x4 applied to site. No bleeding noted.
--- NOTE | 2022-10-24 17:48 | NUR ---
Patient discharged to [place] [id number] in stable condition. Written and verbal after care instructions given. Patient verbalizes understanding of instruction. Patient will be brought back to her house.
[2022-10-24 17:49] VITALS: BP 137/64
== END 2022-10-24 18:11 | disposition home or self-care (01) ==
LOC: ER 15:07
DX: R42 Dizziness and giddiness (principal); I10 Essential (primary) hypertension; G43.909 Migraine, unspecified, not intractable, without status migrainosus; E78.5 Hyperlipidemia, unspecified; M19.90 Unspecified osteoarthritis, unspecified site; Z88.0 Allergy status to penicillin; Z88.2 Allergy status to sulfonamides; Z88.8 Allergy status to other drugs, medicaments and biological substances; Z79.899 Other long term (current) drug therapy
CPT/HCPCS: 99284; 70450; 85025; 80048; 80076; 36415; 85007; A6403

== ENCOUNTER 2023-03-06 15:23 | Emergency (ER) | payer MEDICARE, OTHER ==
[~2023-03-06] VITALS: Ht 157.5 cm; Wt 82.6 kg
[2023-03-06] MEDS ORDERED: METOCLOPRAMIDE HCL 10 MG/2 ML VIAL IV ONE (16:00)
[2023-03-06] MEDS ORDERED: IV NS 0.9% 1,000 ML BAG IV ONE (16:00)
[2023-03-06] MEDS ORDERED: SUMATRIPTAN SUCCINATE 6 MG/0.5 ML VIAL SQ ONE ×2 (16:00→16:12)
[2023-03-06] MEDS ORDERED: METOCLOPRAMIDE HCL 10 MG/2 ML VIAL ONE (16:12)
--- NOTE | 2023-03-06 16:29 | NUR ---
PT IS REFUSING ALL MEDS AND TREATMENTS AND NOW WISHES TO GO HOME.
--- NOTE | 2023-03-06 16:43 | NUR ---
CALLED [facility] FOR TRANSPORT ETA 75 MINS.
--- NOTE | 2023-03-06 17:50 | NUR ---
[facility] at bedside pt's vitals are stable. pt refused all treatment and said she wanted to go home. pt was discharged and is being picked up at this moment
[2023-03-06 17:51] VITALS: BP 134/75; TEMP 98.2
== END 2023-03-06 17:51 | disposition home or self-care (01) ==
LOC: ER 15:29
DX: R51.9 Headache, unspecified (principal); I10 Essential (primary) hypertension; E78.5 Hyperlipidemia, unspecified; Z79.899 Other long term (current) drug therapy; Z79.82 Long term (current) use of aspirin; Z98.890 Other specified postprocedural states; Z88.0 Allergy status to penicillin; Z88.2 Allergy status to sulfonamides; Z88.5 Allergy status to narcotic agent; Z88.8 Allergy status to other drugs, medicaments and biological substances
CPT/HCPCS: J2765; J3030

== ENCOUNTER 2023-05-19 18:21 | Emergency (ER) | payer MEDICARE, OTHER ==
[~2023-05-19] VITALS: Ht 160 cm; Wt 72.6 kg
[2023-05-19] MEDS ORDERED: ONDANSETRON HCL/PF 4 MG/2 ML VIAL ONE ×2 (19:30→19:35)
[2023-05-19] MEDS: ONDANSETRON HCL/PF 4 MG/2 ML VIAL IVP ONE (19:31)
[2023-05-19] MEDS: IV NS 0.9% 500 ML BAG IV ONE (19:31)
[2023-05-19 19:57] LABS: BASOPHILS % (AUTO) 0.3 % (0.0-2.0); EOSINOPHILS # (AUTO) 0.3 K/uL (0.0-0.7); EOSINOPHILS % (AUTO) 6.2 % (0.0-6.0); HEMATOCRIT 34 % (33-45); HEMOGLOBIN 11.1 g/dL (11.5-14.8); LYMPHOCYTES # (AUTO) 1.4 K/uL (0.8-4.8); LYMPHOCYTES % (AUTO) 29.8 % (20.0-44.0); MEAN CORPUSCULAR HEMOGLOBIN 33 PG (26.0-33.0); MEAN CORPUSCULAR HGB CONC 33 g/dl (31.0-36.0); MEAN CORPUSCULAR VOLUME 102 fL (82-100); MONOCYTES # (AUTO) 0.6 K/uL (0.1-1.30); MONOCYTES % (AUTO) 12.5 % (2.0-12.0); NEUTROPHILS # (AUTO) 2.4 K/uL (1.8-8.9); NEUTROPHILS % (AUTO) 51.2 % (43.0-81.0); PLATELET COUNT (AUTO) 153 K/uL (150-450); RED BLOOD CELL COUNT(AUTO) 3.35 MIL/uL (4.0-5.2); RED CELL DISTRIBUTION WIDTH 14.7 % (11.5-15.0); WHITE BLOOD COUNT (AUTO) 4.6 K/uL (4.3-11.0)
[2023-05-19 20:28] LABS: APPEARANCE,URINE CLEAR (CLEAR); BILIRUBIN,URINE NEGATIVE (NEGATIVE); BLOOD, URINE 1+ Ery/uL (NEGATIVE); COLOR,URINE YELLOW (YELLOW); KETONES,URINE NEGATIVE (NEGATIVE); LEUKOCYTE ESTERASE ,URINE NEGATIVE (NEGATIVE); NITRITE, URINE NEGATIVE (NEGATIVE); PH,URINE 5.5 (5.0-8.0); PROTEIN,URINE NEGATIVE (NEGATIVE); UGLUCOSE NEGATIVE (NEGATIVE); UROBILINOGEN,URINE 0.2 EU/dL (0.2)
[2023-05-19 20:29] LABS: LACTIC ACID 0.5 mmol/L (0.4-2.0)
[2023-05-19 20:33] LABS: CALCIUM, SERUM 8.6 mg/dL (8.5-10.1); CARBON DIOXIDE 23 mmol/L (21-32); CHLORIDE 97 mmol/L (98-107); CREATININE 0.8 mg/dL (0.6-1.3); GLUCOSE 96 mg/dL (74-106); POTASSIUM 3.7 mmol/L (3.5-5.1); SODIUM SERUM 128 mmol/L (136-145); UREA NITROGEN, BLOOD 13 mg/dL (7-18)
[2023-05-19 20:39] LABS: EOSINOPHILS % (MANUAL) 6 % (0-4); LYMPHOCYTES % (MANUAL) 31 % (16-48); MONOCYTES % (MANUAL) 9 % (0-11.0); NEUTROPHILS % (MANUAL) 54 (42-76); PLATELET ESTIMATE ADEQUATE
[2023-05-19 20:39] LABS: ALANINE AMINOTRANSFERASE 17 U/L (12-78); ALBUMIN 3.6 g/dL (3.4-5.0); ALKALINE PHOSPHATASE 47 U/L (46-116); ASPARTATE AMINOTRANSFERASE 14 U/L (15-37); BILIRUBIN,DIRECT 0.1 mg/dL (0.0-0.2); BILIRUBIN,TOTAL 0.3 mg/dL (0.2-1.0); TOTAL PROTEIN, SERUM 6.2 g/dL (6.4-8.2)
[2023-05-19 21:07] LABS: ADD URINE CULTURE NO; BACTERIA,URINE None seen /HPF (None Seen); MUCUS,URINE Few /LPF (None Seen); WBC,URINE NONE SEEN /HPF (0-3)
[2023-05-19 23:34] VITALS: BP 133/68; TEMP 97.7; O2SAT 98
== END 2023-05-19 23:34 | disposition home or self-care (01) ==
LOC: ER 18:22
DX: R55 Syncope and collapse (principal); E87.1 Hypo-osmolality and hyponatremia; D53.9 Nutritional anemia, unspecified; I10 Essential (primary) hypertension; E78.5 Hyperlipidemia, unspecified; M19.90 Unspecified osteoarthritis, unspecified site; G43.909 Migraine, unspecified, not intractable, without status migrainosus; Z88.0 Allergy status to penicillin; Z88.2 Allergy status to sulfonamides; Z88.8 Allergy status to other drugs, medicaments and biological substances; Z79.899 Other long term (current) drug therapy
CPT/HCPCS: 99285; 96374; 70450; 71045; 93005; 85025; 80048; 87040 ×2; 83605; 80076; 81001; 36415; 84484; 82962; 85007; J2405; J7040 ×2

== ENCOUNTER 2023-07-10 16:45 | Inpatient (IN) | payer MEDICARE, OTHER ==
[~2023-07-10] VITALS: Ht 160 cm; Wt 78.9 kg
[~2023-07-10 16:45] MED LIST changes: +LIDO30AD10 TD; -LIDO30AD10 TP
[2023-07-10 17:55] LABS: BASOPHILS % (AUTO) 0.6 % (0.0-2.0); EOSINOPHILS # (AUTO) 1.2 K/uL (0.0-0.7); EOSINOPHILS % (AUTO) 20.2 % (0.0-6.0); HEMATOCRIT 34 % (33-45); HEMOGLOBIN 10.9 g/dL (11.5-14.8); LYMPHOCYTES # (AUTO) 1.8 K/uL (0.8-4.8); MEAN CORPUSCULAR HEMOGLOBIN 33 PG (26.0-33.0); MEAN CORPUSCULAR HGB CONC 33 g/dl (31.0-36.0); MEAN CORPUSCULAR VOLUME 102 fL (82-100); MONOCYTES # (AUTO) 0.6 K/uL (0.1-1.30); MONOCYTES % (AUTO) 10.3 % (2.0-12.0); NEUTROPHILS # (AUTO) 2.3 K/uL (1.8-8.9); NEUTROPHILS % (AUTO) 38.9 % (43.0-81.0); PLATELET COUNT (AUTO) 160 K/uL (150-450); RED BLOOD CELL COUNT(AUTO) 3.32 MIL/uL (4.0-5.2); RED CELL DISTRIBUTION WIDTH 15.6 % (11.5-15.0)
[2023-07-10 18:02] LABS: CALCIUM, SERUM 8.1 mg/dL (8.5-10.1); CARBON DIOXIDE 25 mmol/L (21-32); CHLORIDE 100 mmol/L (98-107); CREATININE 0.8 mg/dL (0.6-1.3); GLUCOSE 106 mg/dL (74-106); POTASSIUM 4.9 mmol/L (3.5-5.1); SODIUM SERUM 132 mmol/L (136-145); UREA NITROGEN, BLOOD 20 mg/dL (7-18)
[2023-07-10] MEDS ORDERED: OSIM80TA PO (18:49)
[2023-07-10] MEDS ORDERED: MIRT7.5T10 PO (18:49)
[2023-07-10] MEDS ORDERED: SENN-261 PO (18:49)
[2023-07-10] MEDS ORDERED: ROSU10TA2 PO (18:49)
[2023-07-10] MEDS ORDERED: MINO100T PO (18:49)
[2023-07-10] MEDS ORDERED: NALO4SPR NAS (18:49)
[2023-07-10 18:59] LABS: EOSINOPHILS % (MANUAL) 16 % (0-4); LYMPHOCYTES % (MANUAL) 29 % (16-48); MONOCYTES % (MANUAL) 12 % (0-11.0); NEUTROPHILS % (MANUAL) 43 (42-76); PLATELET ESTIMATE ADEQUATE
[2023-07-10] MEDS ORDERED: PROCHLORPERAZINE EDISYLATE 10 MG/2 ML VIAL ONE (19:28)
[2023-07-10] MEDS ORDERED: diphenhydrAMINE HCL 50 MG/ML VIAL ONE (19:28)
[2023-07-10] MEDS ORDERED: IV NS 0.9% 500 ML BAG IV ONE (19:30)
[2023-07-10] MEDS ORDERED: PROCHLORPERAZINE EDISYLATE 10 MG/2 ML VIAL IVP ONE (19:30)
[2023-07-10] MEDS ORDERED: diphenhydrAMINE HCL 50 MG/ML VIAL IV ONE (19:30)
[2023-07-10] MEDS ORDERED: Z GUARD REMEDY 4 OZ OINT TP PRN (20:00)
[2023-07-10] MEDS ORDERED: ONDANSETRON HCL/PF 4 MG/2 ML VIAL IVP PRN (20:00)
[2023-07-10] MEDS ORDERED: MAG HYDROX/AL HYDROX/SIMETH 30 ML UDC PO PRN (20:00)
[2023-07-10] MEDS ORDERED: MAGNESIUM HYDROXIDE 30 ML UDC PO PRN (20:00)
[2023-07-10] MEDS ORDERED: POLYETHYLENE GLYCOL 3350 17 GM POWD.PACK PO PRN (20:00)
[2023-07-10] MEDS ORDERED: ACETAMINOPHEN 325 MG TABLET PO PRN (20:00)
[2023-07-10] MEDS ORDERED: IV NS 0.9% 1,000 ML IV PRN (20:00)
[2023-07-10] MEDS ORDERED: ZOLPIDEM TARTRATE 5 MG TABLET PO PRN (20:00)
[2023-07-10 21:00] VITALS: BP 148/71; TEMP 97.6; O2SAT 100; O2SAT 99
[2023-07-10] MEDS ORDERED: ALBUTEROL FS 2.5 MG/3 ML VIAL.NEB NEB PRN (21:00)
[2023-07-10] MEDS ORDERED: LISINOPRIL (5MG) 5 MG TABLET PO PRN (21:00)
[2023-07-10] MEDS: LEVETIRACETAM (250 MG) 250 MG TABLET PO SCH (21:56)
[2023-07-10] MEDS: ATORVASTATIN 40 MG TABLET PO SCH (21:56)
[2023-07-10] MEDS: MIRTAZAPINE 15 MG TABLET PO SCH (21:56)
[2023-07-10] MEDS: GABAPENTIN 100 MG CAPSULE PO SCH (21:56)
[2023-07-11 07:00] VITALS: BP 138/74; TEMP 97.7; O2SAT 98
[2023-07-11 07:15] LABS: BASOPHILS % (AUTO) 0.4 % (0.0-2.0); EOSINOPHILS # (AUTO) 1.3 K/uL (0.0-0.7); HEMATOCRIT 34 % (33-45); HEMOGLOBIN 11.1 g/dL (11.5-14.8); LYMPHOCYTES # (AUTO) 1.2 K/uL (0.8-4.8); LYMPHOCYTES % (AUTO) 23.2 % (20.0-44.0); MEAN CORPUSCULAR HEMOGLOBIN 33 PG (26.0-33.0); MEAN CORPUSCULAR HGB CONC 33 g/dl (31.0-36.0); MEAN CORPUSCULAR VOLUME 100 fL (82-100); MONOCYTES # (AUTO) 0.5 K/uL (0.1-1.30); MONOCYTES % (AUTO) 9.9 % (2.0-12.0); NEUTROPHILS # (AUTO) 2.1 K/uL (1.8-8.9); NEUTROPHILS % (AUTO) 40.4 % (43.0-81.0); PLATELET COUNT (AUTO) 155 K/uL (150-450); RED BLOOD CELL COUNT(AUTO) 3.36 MIL/uL (4.0-5.2); RED CELL DISTRIBUTION WIDTH 15.2 % (11.5-15.0); WHITE BLOOD COUNT (AUTO) 5.1 K/uL (4.3-11.0)
[2023-07-11 07:28] LABS: EOSINOPHILS % (AUTO) 26.1 % (0.0-6.0)
[2023-07-11 07:35] LABS: CALCIUM, SERUM 8.3 mg/dL (8.5-10.1); CARBON DIOXIDE 24 mmol/L (21-32); CHLORIDE 108 mmol/L (98-107); CREATININE 0.7 mg/dL (0.6-1.3); GLUCOSE 98 mg/dL (74-106); MAGNESIUM 2.3 mg/dL (1.8-2.4); PHOSPHORUS 4.2 mg/dL (2.5-4.9); POTASSIUM 4.4 mmol/L (3.5-5.1); SODIUM SERUM 141 mmol/L (136-145); UREA NITROGEN, BLOOD 17 mg/dL (7-18)
[2023-07-11 07:40] LABS: CHOLESTEROL 142 mg/dL (<200); HDL CHOLESTEROL 62 mg/dL (40-60); LDL 65 mg/dL (0-99); TRIGLYCERIDES 91 mg/dL (30-150)
[2023-07-11] MEDS: LIDOCAINE 5% (PATCH) 1 EA PATCH TP SCH (08:32)
[2023-07-11] MEDS: PANTOPRAZOLE 40 MG TABLET.DR PO SCH (08:32)
[2023-07-11] MEDS: LEVETIRACETAM (250 MG) 250 MG TABLET PO SCH ×2 (08:32→21:11)
[2023-07-11] MEDS: MELOXICAM 7.5 MG TABLET PO SCH (08:32)
[2023-07-11] MEDS: SENNOSIDES 8.6 MG TABLET PO SCH (08:45)
[2023-07-11] MEDS ORDERED: OSIMERTINIB MESYLATE 80 MG PO SCH (09:00)
[2023-07-11 10:18] LABS: EOSINOPHILS % (MANUAL) 27 % (0-4); LYMPHOCYTES % (MANUAL) 20 % (16-48); MONOCYTES % (MANUAL) 10 % (0-11.0); NEUTROPHILS % (MANUAL) 43 (42-76); PLATELET ESTIMATE ADEQUATE
[2023-07-11 10:19] LABS: ANISOCYTOSIS 1+; STOMATOCYTES 1+
[2023-07-11 12:00] VITALS: BP 140/64; TEMP 97.9; O2SAT 99
[2023-07-11] MEDS: VALPROIC ACID 250 MG/5 ML UDC PO SCH ×2 (14:22→21:11)
[2023-07-11] MEDS: ASPIRIN EC 325 MG TABLET.DR PO PRN (14:57)
[2023-07-11 16:00] VITALS: BP 151/75; TEMP 97.7; O2SAT 99
[2023-07-11 20:00] VITALS: BP 141/81; TEMP 97.3; O2SAT 98
[2023-07-11] MEDS: GABAPENTIN 100 MG CAPSULE PO SCH (21:11)
[2023-07-11] MEDS: ATORVASTATIN 40 MG TABLET PO SCH (21:11)
[2023-07-11] MEDS: MIRTAZAPINE 15 MG TABLET PO SCH (21:13)
[2023-07-12] VITALS: BP 132/73; TEMP 97.6; O2SAT 96
[2023-07-12 05:00] VITALS: BP 116/60; TEMP 98; O2SAT 98
[2023-07-12 08:00] VITALS: BP 140/59; TEMP 99; O2SAT 98
[2023-07-12] MEDS: LEVETIRACETAM (250 MG) 250 MG TABLET PO SCH (08:24)
[2023-07-12] MEDS: PANTOPRAZOLE 40 MG TABLET.DR PO SCH (08:24)
[2023-07-12] MEDS: SENNOSIDES 8.6 MG TABLET PO SCH (08:24)
[2023-07-12] MEDS: VALPROIC ACID 250 MG/5 ML UDC PO SCH (08:24)
[2023-07-12] MEDS: MELOXICAM 7.5 MG TABLET PO SCH (08:24)
[2023-07-12] MEDS: LIDOCAINE 5% (PATCH) 1 EA PATCH TP SCH (08:25)
[2023-07-12] MEDS: ASPIRIN EC 325 MG TABLET.DR PO PRN (14:32)
== END 2023-07-12 16:30 | disposition home or self-care (01) | DRG 303 ==
LOC: ER 16:45 → TELE 20:09
PROVIDERS: ADMIT Nurse Practitioner Acute Care
DX: I25.10 Atherosclerotic heart disease of native coronary artery without angina pectoris (principal); C34.90 Malignant neoplasm of unspecified part of unspecified bronchus or lung; E87.1 Hypo-osmolality and hyponatremia; G43.909 Migraine, unspecified, not intractable, without status migrainosus; I10 Essential (primary) hypertension; G62.9 Polyneuropathy, unspecified; G40.909 Epilepsy, unspecified, not intractable, without status epilepticus; E78.5 Hyperlipidemia, unspecified; M81.0 Age-related osteoporosis without current pathological fracture; M19.90 Unspecified osteoarthritis, unspecified site; Z96.652 Presence of left artificial knee joint; Z88.5 Allergy status to narcotic agent; Z88.0 Allergy status to penicillin; Z88.2 Allergy status to sulfonamides; Z88.8 Allergy status to other drugs, medicaments and biological substances; Z88.6 Allergy status to analgesic agent; Z87.891 Personal history of nicotine dependence; Z85.118 Personal history of other malignant neoplasm of bronchus and lung; Z90.710 Acquired absence of both cervix and uterus; Z83.3 Family history of diabetes mellitus; Z82.3 Family history of stroke; Z79.899 Other long term (current) drug therapy; J45.909 Unspecified asthma, uncomplicated; G89.4 Chronic pain syndrome; R79.89 Other specified abnormal findings of blood chemistry; F41.9 Anxiety disorder, unspecified
CPT/HCPCS: 36415; 70450-TC; 71045-TC; 80048-TC; 80061-TC; 83735-TC; 84100-TC; 84484-TC; 85025-TC; 93307-TC; A4223; G0378; J0780; J1200; J7030; J7040

== ENCOUNTER 2023-11-23 16:49 | Inpatient (IN) | payer MEDICARE, OTHER ==
[~2023-11-23] VITALS: Ht 160 cm; Wt 82.6 kg
[~2023-11-23 16:49] MED LIST changes: -ASPI-1420 PO; -AZEL137S7; -BENZ-13 PO; -BISA5TAB10 PO; -FAMO-108 PO; +MINO100T PO; -MIRT-121 PO; +MIRT7.5T10 PO; +NALO4SPR NAS; -ONDA4TAB5 PO; +OSIM80TA PO; -POLY15DR40 EACHEYE; -PROC25SU2 RC; +ROSU10TA2 PO; -ROSU20TA2 PO; +SENN-261 PO; -SUMA100T16 PO; -TRAZ-252 PO; -VERA120C2 PO
[2023-11-23 17:23] LABS: BASOPHILS % (AUTO) 0.6 % (0.0-2.0); EOSINOPHILS # (AUTO) 1.1 K/uL (0.0-0.7); EOSINOPHILS % (AUTO) 18.7 % (0.0-6.0); HEMATOCRIT 38 % (33-45); HEMOGLOBIN 12.4 g/dL (11.5-14.8); LYMPHOCYTES # (AUTO) 1.7 K/uL (0.8-4.8); LYMPHOCYTES % (AUTO) 27.8 % (20.0-44.0); MEAN CORPUSCULAR HEMOGLOBIN 33 PG (26.0-33.0); MEAN CORPUSCULAR HGB CONC 33 g/dl (31.0-36.0); MEAN CORPUSCULAR VOLUME 101 fL (82-100); MONOCYTES # (AUTO) 0.6 K/uL (0.1-1.30); NEUTROPHILS # (AUTO) 2.6 K/uL (1.8-8.9); NEUTROPHILS % (AUTO) 42.9 % (43.0-81.0); PLATELET COUNT (AUTO) 179 K/uL (150-450); RED BLOOD CELL COUNT(AUTO) 3.77 MIL/uL (4.0-5.2); RED CELL DISTRIBUTION WIDTH 14.7 % (11.5-15.0)
[2023-11-23 17:31] LABS: CALCIUM, SERUM 9.3 mg/dL (8.5-10.1); CARBON DIOXIDE 24 mmol/L (21-32); CHLORIDE 102 mmol/L (98-107); CREATININE 0.8 mg/dL (0.6-1.3); GLUCOSE 102 mg/dL (74-106); POTASSIUM 3.9 mmol/L (3.5-5.1); SODIUM SERUM 136 mmol/L (136-145); UREA NITROGEN, BLOOD 10 mg/dL (7-18)
[2023-11-23 17:43] LABS: NT-PRO BNP 411 pg/mL (0-125)
[2023-11-23] MEDS ORDERED: TRAZ-182 PO (20:16)
[2023-11-23] MEDS ORDERED: SUMA100T16 PO (20:16)
[2023-11-23] MEDS ORDERED: ONDANSETRON HCL/PF 4 MG/2 ML VIAL IVP PRN (22:30)
[2023-11-23] MEDS ORDERED: MAGNESIUM HYDROXIDE 30 ML UDC PO PRN (22:30)
[2023-11-23] MEDS ORDERED: MAG HYDROX/AL HYDROX/SIMETH 30 ML UDC PO PRN (22:30)
[2023-11-23] MEDS ORDERED: SUMATRIPTAN SUCCINATE 100 MG TABLET PO PRN (22:30)
[2023-11-23] MEDS ORDERED: POLYETHYLENE GLYCOL 3350 17 GM POWD.PACK PO PRN (22:30)
[2023-11-23] MEDS ORDERED: Z GUARD REMEDY 4 OZ OINT TP PRN (22:30)
[2023-11-23] MEDS ORDERED: TAGRISSO 80 MG XX SCH (22:30)
[2023-11-23] MEDS ORDERED: ACETAMINOPHEN 325 MG TABLET PO PRN (22:30)
[2023-11-23] MEDS ORDERED: SENNOSIDES 8.6 MG TABLET PO PRN (22:30)
[2023-11-23] MEDS ORDERED: HOME MED MISCELLANEOUS XX SCH (22:30)
[2023-11-23] MEDS ORDERED: LORATADINE 10 MG TABLET PO PRN (22:30)
[2023-11-23] MEDS ORDERED: ALBUTEROL FS 2.5 MG/3 ML VIAL.NEB NEB PRN (23:00)
[2023-11-23 23:30] VITALS: BP 118/61; TEMP 97.7
[2023-11-23] MEDS: ENOXAPARIN SODIUM 40 MG/0.4 ML DISP.SYRIN SQ SCH (23:46)
[2023-11-23] MEDS: TRAZODONE 50 MG TABLET PO PRN (23:47)
[2023-11-23] MEDS: oxyCODONE/APAP (5/325 MG) 1 UDTAB TABLET PO PRN (23:48)
[2023-11-24 05:01] VITALS: BP 107/50; TEMP 97.7; O2SAT 98
[2023-11-24 06:57] LABS: BASOPHILS % (AUTO) 0.3 % (0.0-2.0); EOSINOPHILS # (AUTO) 1.3 K/uL (0.0-0.7); HEMATOCRIT 35 % (33-45); HEMOGLOBIN 11.6 g/dL (11.5-14.8); LYMPHOCYTES # (AUTO) 1.4 K/uL (0.8-4.8); MEAN CORPUSCULAR HEMOGLOBIN 34 PG (26.0-33.0); MEAN CORPUSCULAR HGB CONC 33 g/dl (31.0-36.0); MEAN CORPUSCULAR VOLUME 100 fL (82-100); MONOCYTES # (AUTO) 0.7 K/uL (0.1-1.30); MONOCYTES % (AUTO) 13.5 % (2.0-12.0); NEUTROPHILS # (AUTO) 1.5 K/uL (1.8-8.9); NEUTROPHILS % (AUTO) 30.7 % (43.0-81.0); PLATELET COUNT (AUTO) 158 K/uL (150-450); RED BLOOD CELL COUNT(AUTO) 3.45 MIL/uL (4.0-5.2); RED CELL DISTRIBUTION WIDTH 14.5 % (11.5-15.0); WHITE BLOOD COUNT (AUTO) 4.8 K/uL (4.3-11.0)
[2023-11-24 07:03] LABS: EOSINOPHILS % (AUTO) 26.5 % (0.0-6.0)
[2023-11-24 07:12] LABS: CALCIUM, SERUM 9.2 mg/dL (8.5-10.1); CREATININE 0.8 mg/dL (0.6-1.3); MAGNESIUM 2.1 mg/dL (1.8-2.4); PHOSPHORUS 5.1 mg/dL (2.5-4.9); POTASSIUM 3.9 mmol/L (3.5-5.1)
[2023-11-24 07:25] LABS: THYROID STIMULATING HORMONE 3.256 uIU/mL (0.358-3.74)
[2023-11-24 08:00] VITALS: BP 130/67; TEMP 97.9; O2SAT 100
[2023-11-24] MEDS: FUROSEMIDE 20 MG TABLET PO SCH (08:09)
[2023-11-24] MEDS: LIDOCAINE 5% (PATCH) 1 EA PATCH TP SCH (08:09)
[2023-11-24] MEDS: LEVETIRACETAM (250 MG) 250 MG TABLET PO SCH (08:09)
[2023-11-24] MEDS: ASPIRIN 81 MG TAB.CHEW PO SCH (08:09)
[2023-11-24] MEDS: MELOXICAM 7.5 MG TABLET PO SCH (08:10)
[2023-11-24] MEDS ORDERED: MINOCYCLINE HCL 50 MG CAPSULE PO SCH (09:00)
[2023-11-24] MEDS ORDERED: IOHEXOL-350 100 ML VIAL IV ONE (09:41)
[2023-11-24] MEDS ORDERED: CT SWABBABLE VALVE TRANS SET 1 EA INFUS.SET MC ONE (09:42)
[2023-11-24] MEDS ORDERED: IV NS 0.9% 250 ML IV ONE (09:44)
[2023-11-24 10:11] LABS: ANISOCYTOSIS 1+; BASOPHILS % (MANUAL) 0 % (0.0-2.0); EOSINOPHILS % (MANUAL) 25 % (0-4); LYMPHOCYTES % (MANUAL) 24 % (16-48); MONOCYTES % (MANUAL) 10 % (0-11.0); NEUTROPHILS % (MANUAL) 41 (42-76); PLATELET ESTIMATE ADEQUATE; STOMATOCYTES 1+
[2023-11-24] MEDS: METOPROLOL TARTRATE 50 MG TABLET PO SCH (10:34)
[2023-11-24] MEDS: METOPROLOL TARTRATE INJ 5 MG/5 ML AMPUL IVP PRN (12:55)
[2023-11-24] MEDS ORDERED: METOPROLOL TARTRATE INJ 5 MG/5 ML AMPUL ONE (12:58)
[2023-11-24] MEDS ORDERED: NITROGLYCERIN 0.4 MG/TAB BOTTLE ONE (12:58)
[2023-11-24] MEDS: NITROGLYCERIN 0.4 MG/TAB BOTTLE SL ONE (13:00)
[2023-11-24 13:10] VITALS: BP 118/61
[2023-11-24] MEDS ORDERED: METO50TA16 PO (16:28)
[2023-11-24] MEDS: KETOROLAC TROMETHAMINE INJ 30 MG/ML VIAL IM PRN (16:37)
[2023-11-24] MEDS ORDERED: MIRTAZAPINE 15 MG TABLET PO SCH (22:00)
[2023-11-24] MEDS ORDERED: ATORVASTATIN 40 MG TABLET PO SCH (22:00)
[2023-11-24] MEDS ORDERED: ERYTHROMYCIN BASE OPHTH 3.5 GM TUBE EACHEYE SCH (22:00)
[2023-11-24] MEDS ORDERED: GABAPENTIN 300 MG CAPSULE PO SCH (22:00)
== END 2023-11-24 17:55 | disposition home or self-care (01) | DRG 206 ==
LOC: ER 16:51 → TELE 22:02
PROVIDERS: ADMIT Nurse Practitioner Acute Care; ATTEND Student in an Organized Health Care Education/Training Program
DX: M94.0 Chondrocostal junction syndrome [Tietze] (principal); C34.90 Malignant neoplasm of unspecified part of unspecified bronchus or lung; G40.909 Epilepsy, unspecified, not intractable, without status epilepticus; G62.9 Polyneuropathy, unspecified; E78.5 Hyperlipidemia, unspecified; F17.210 Nicotine dependence, cigarettes, uncomplicated; F32.A Depression, unspecified; I10 Essential (primary) hypertension; J45.909 Unspecified asthma, uncomplicated; K21.9 Gastro-esophageal reflux disease without esophagitis; M81.0 Age-related osteoporosis without current pathological fracture; Z82.3 Family history of stroke; Z85.118 Personal history of other malignant neoplasm of bronchus and lung; Z88.0 Allergy status to penicillin; Z88.2 Allergy status to sulfonamides; Z90.710 Acquired absence of both cervix and uterus; M19.90 Unspecified osteoarthritis, unspecified site; G43.909 Migraine, unspecified, not intractable, without status migrainosus; E66.9 Obesity, unspecified; Z68.32 Body mass index [BMI] 32.0-32.9, adult; Z71.6 Tobacco abuse counseling
CPT/HCPCS: 36415; 71045-TC; 75574; 80048-TC; 80061-TC; 83735-TC; 83880; 84100-TC; 84443-TC; 84484-TC; 85025-TC; 93970-TC; G0378; J1650; J1885; J3490; J7050; Q9967

== ENCOUNTER 2024-03-21 17:43 | Emergency (ER) | payer MEDICARE, OTHER ==
[~2024-03-21] VITALS: Ht 160 cm; Wt 81.6 kg
[~2024-03-21 17:43] MED LIST changes: -LISI2.5T2 PO; +METO50TA16 PO; +SUMA100T16 PO; +TRAZ-182 PO
[2024-03-21 18:13] VITALS: BP 132/85; TEMP 98.6
[2024-03-21] MEDS ORDERED: ACETAMINOPHEN ES 500 MG TABLET ONE (21:10)
[2024-03-21] MEDS: ACETAMINOPHEN ES 500 MG TABLET PO ONE (21:22)
[2024-03-22 00:18] VITALS: O2SAT 97
== END 2024-03-22 00:19 | disposition home or self-care (01) ==
LOC: ER 17:43
DX: M25.561 Pain in right knee (principal); M19.90 Unspecified osteoarthritis, unspecified site; I10 Essential (primary) hypertension; G40.909 Epilepsy, unspecified, not intractable, without status epilepticus; G43.909 Migraine, unspecified, not intractable, without status migrainosus; G62.9 Polyneuropathy, unspecified; K21.9 Gastro-esophageal reflux disease without esophagitis; Z85.9 Personal history of malignant neoplasm, unspecified; Z90.710 Acquired absence of both cervix and uterus; Z88.0 Allergy status to penicillin; Z88.8 Allergy status to other drugs, medicaments and biological substances; Z88.6 Allergy status to analgesic agent; Z88.2 Allergy status to sulfonamides; W18.39XA Other fall on same level, initial encounter; Y93.89 Activity, other specified; Y92.89 Other specified places as the place of occurrence of the external cause; Y99.8 Other external cause status
CPT/HCPCS: 73564-TC

== ENCOUNTER 2024-05-09 16:58 | Emergency (ER) | payer MEDICARE, OTHER ==
[~2024-05-09] VITALS: Ht 160 cm; Wt 80.7 kg
[2024-05-09 18:14] LABS: BASOPHILS % (AUTO) 0.8 % (0.0-2.0); HEMATOCRIT 38 % (33-45); HEMOGLOBIN 12.4 g/dL (11.5-14.8); LYMPHOCYTES # (AUTO) 1.3 K/uL (0.8-4.8); LYMPHOCYTES % (AUTO) 28.1 % (20.0-44.0); MEAN CORPUSCULAR HEMOGLOBIN 35 PG (26.0-33.0); MEAN CORPUSCULAR HGB CONC 33 g/dl (31.0-36.0); MEAN CORPUSCULAR VOLUME 104 fL (82-100); MONOCYTES # (AUTO) 0.5 K/uL (0.1-1.30); MONOCYTES % (AUTO) 10.3 % (2.0-12.0); NEUTROPHILS # (AUTO) 1.8 K/uL (1.8-8.9); NEUTROPHILS % (AUTO) 39.8 % (43.0-81.0); PLATELET COUNT (AUTO) 149 K/uL (150-450); RED CELL DISTRIBUTION WIDTH 15.1 % (11.5-15.0); WHITE BLOOD COUNT (AUTO) 4.5 K/uL (4.3-11.0)
[2024-05-09 18:24] LABS: CALCIUM, SERUM 8.7 mg/dL (8.5-10.1); CARBON DIOXIDE 26 mmol/L (21-32); CHLORIDE 105 mmol/L (98-107); CREATININE 0.8 mg/dL (0.6-1.3); GLUCOSE 103 mg/dL (74-106); POTASSIUM 4.2 mmol/L (3.5-5.1); SODIUM SERUM 136 mmol/L (136-145); UREA NITROGEN, BLOOD 11 mg/dL (7-18)
[2024-05-09 18:36] LABS: ALANINE AMINOTRANSFERASE 13 U/L (12-78); ALBUMIN 3.2 g/dL (3.4-5.0); ALKALINE PHOSPHATASE 41 U/L (46-116); ASPARTATE AMINOTRANSFERASE 12 U/L (15-37); BILIRUBIN,TOTAL 0.2 mg/dL (0.2-1.0); NT-PRO BNP 254 pg/mL (0-125); TOTAL PROTEIN, SERUM 6.1 g/dL (6.4-8.2)
[2024-05-09 20:55] VITALS: BP 112/62; TEMP 97.8; O2SAT 97
== END 2024-05-09 20:55 | disposition home or self-care (01) ==
LOC: ER 17:18
DX: R42 Dizziness and giddiness (principal); R11.0 Nausea; G62.9 Polyneuropathy, unspecified; I10 Essential (primary) hypertension; K21.9 Gastro-esophageal reflux disease without esophagitis; M19.90 Unspecified osteoarthritis, unspecified site; Z86.69 Personal history of other diseases of the nervous system and sense organs; Z86.79 Personal history of other diseases of the circulatory system; Z85.118 Personal history of other malignant neoplasm of bronchus and lung; Z90.710 Acquired absence of both cervix and uterus; Z88.2 Allergy status to sulfonamides; Z88.0 Allergy status to penicillin; Z88.8 Allergy status to other drugs, medicaments and biological substances; Z88.6 Allergy status to analgesic agent; Z88.5 Allergy status to narcotic agent; Z87.891 Personal history of nicotine dependence
CPT/HCPCS: 36415; 70450-TC; 71045-TC; 80048-TC; 80076-TC; 82962-TC; 83880; 84484-TC; 85025-TC

== ENCOUNTER 2024-05-14 18:03 | Emergency (ER) | payer MEDICARE, OTHER ==
[~2024-05-14] VITALS: Ht 160 cm; Wt 81.6 kg
--- NOTE | 2024-05-14 18:18 | NUR ---
BIBRA 61 FROM HOME C/O HEADACHE AND CHEST PAIN SINCE THIS MORNING. TO ER BED 4, HOOKED TO FOOD PREPARATION KITCHEN AIDE, CHANGED YANETH OPS GOWN, BLANKET PROVIDED. NOTED WITH R FOREARM 20G PERIPHERAL IV LINE, PATENT AND FLUSHING. AWAITING MD CARTER
[2024-05-14 19:11] LABS: BASOPHILS % (AUTO) 0.6 % (0.0-2.0); EOSINOPHILS # (AUTO) 0.6 K/uL (0.0-0.7); EOSINOPHILS % (AUTO) 11.4 % (0.0-6.0); HEMATOCRIT 37 % (33-45); HEMOGLOBIN 12.3 g/dL (11.5-14.8); LYMPHOCYTES # (AUTO) 1.7 K/uL (0.8-4.8); MEAN CORPUSCULAR HEMOGLOBIN 34 PG (26.0-33.0); MEAN CORPUSCULAR HGB CONC 33 g/dl (31.0-36.0); MEAN CORPUSCULAR VOLUME 102 fL (82-100); MONOCYTES # (AUTO) 0.5 K/uL (0.1-1.30); MONOCYTES % (AUTO) 9.8 % (2.0-12.0); NEUTROPHILS # (AUTO) 2.2 K/uL (1.8-8.9); NEUTROPHILS % (AUTO) 44.2 % (43.0-81.0); PLATELET COUNT (AUTO) 159 K/uL (150-450); RED BLOOD CELL COUNT(AUTO) 3.63 MIL/uL (4.0-5.2); WHITE BLOOD COUNT (AUTO) 4.9 K/uL (4.3-11.0)
[2024-05-14 19:20] LABS: CALCIUM, SERUM 8.9 mg/dL (8.5-10.1); CARBON DIOXIDE 24 mmol/L (21-32); CHLORIDE 103 mmol/L (98-107); CREATININE 0.9 mg/dL (0.6-1.3); GLUCOSE 99 mg/dL (74-106); POTASSIUM 4.2 mmol/L (3.5-5.1); SODIUM SERUM 137 mmol/L (136-145); UREA NITROGEN, BLOOD 14 mg/dL (7-18)
[2024-05-14] MEDS ORDERED: IV NS 0.9% 250 ML IV ONE (19:53)
[2024-05-14] MEDS ORDERED: IOHEXOL-300 100 ML VIAL IV ONE (19:54)
--- NOTE | 2024-05-14 20:17 | NUR ---
PATIENT TAKEN TO CT VIA MAGALYS
[2024-05-14 22:02] LABS: ANISOCYTOSIS 1+; EOSINOPHILS % (MANUAL) 9 % (0-4); LYMPHOCYTES % (MANUAL) 32 % (16-48); MONOCYTES % (MANUAL) 4 % (0-11.0); NEUTROPHILS % (MANUAL) 55 (42-76); PLATELET ESTIMATE ADEQUATE; ROULEAUX 1+
--- NOTE | 2024-05-14 22:22 | NUR ---
TRANSPORTATION SET UP W [facility] ETA 90 MINS
--- NOTE | 2024-05-15 00:01 | NUR ---
Patient discharged to home in stable condition via EMS. Written and verbal after care instructions given. Patient verbalizes understanding of instruction.
[2024-05-15 00:02] VITALS: BP 124/75; TEMP 98; O2SAT 100
== END 2024-05-15 00:03 | disposition home or self-care (01) ==
LOC: ER 18:06
DX: R07.9 Chest pain, unspecified (principal); G43.909 Migraine, unspecified, not intractable, without status migrainosus; I10 Essential (primary) hypertension; K21.9 Gastro-esophageal reflux disease without esophagitis; G62.9 Polyneuropathy, unspecified; Z90.49 Acquired absence of other specified parts of digestive tract; Z86.79 Personal history of other diseases of the circulatory system; Z88.0 Allergy status to penicillin; Z88.2 Allergy status to sulfonamides; Z88.8 Allergy status to other drugs, medicaments and biological substances; Z88.5 Allergy status to narcotic agent; Z88.6 Allergy status to analgesic agent; Z87.891 Personal history of nicotine dependence; Z85.118 Personal history of other malignant neoplasm of bronchus and lung
CPT/HCPCS: 99285; 71260; 71045; 93005; 85025; 80048; 36415; 84484; 85007; J7050; Q9967

== ENCOUNTER → 2024-05-19 | Emergency (ER) | payer MEDICARE, OTHER ==
[~2024-05-19] VITALS: Ht 157.5 cm; Wt 77.1 kg
[~2024-05-19] MED LIST changes: +SUMA100T PO
[2024-05-19 15:09] VITALS: TEMP 98.6
--- NOTE | 2024-05-19 15:10 | NUR ---
RECEIVED PT 79 YRS FAMALE FROM HOME C/O HEADACK AND DIZZNESS AWAKE AND ALERT DINESS ANY WEEKNESS
--- NOTE | 2024-05-19 15:20 | NUR ---
SEEN BY DR. ROSS
--- NOTE | 2024-05-19 15:30 | NUR ---
TO CT SCAN
--- NOTE | 2024-05-19 15:46 | NUR ---
EKG obtained at 1535.
[2024-05-19 15:54] LABS: BASOPHILS % (AUTO) 0.6 % (0.0-2.0); EOSINOPHILS # (AUTO) 0.8 K/uL (0.0-0.7); HEMATOCRIT 37 % (33-45); HEMOGLOBIN 12.3 g/dL (11.5-14.8); LYMPHOCYTES # (AUTO) 1.9 K/uL (0.8-4.8); LYMPHOCYTES % (AUTO) 35.8 % (20.0-44.0); MEAN CORPUSCULAR HEMOGLOBIN 34 PG (26.0-33.0); MEAN CORPUSCULAR HGB CONC 33 g/dl (31.0-36.0); MEAN CORPUSCULAR VOLUME 102 fL (82-100); MONOCYTES # (AUTO) 0.6 K/uL (0.1-1.30); MONOCYTES % (AUTO) 10.5 % (2.0-12.0); NEUTROPHILS # (AUTO) 2.1 K/uL (1.8-8.9); NEUTROPHILS % (AUTO) 39.1 % (43.0-81.0); PLATELET COUNT (AUTO) 184 K/uL (150-450); RED BLOOD CELL COUNT(AUTO) 3.66 MIL/uL (4.0-5.2); RED CELL DISTRIBUTION WIDTH 15.2 % (11.5-15.0); WHITE BLOOD COUNT (AUTO) 5.4 K/uL (4.3-11.0)
[2024-05-19] MEDS: IV NS 0.9% 1,000 ML BAG IV ONE (16:01)
[2024-05-19 16:05] LABS: CARBON DIOXIDE 28 mmol/L (21-32); CHLORIDE 101 mmol/L (98-107); CREATININE 0.9 mg/dL (0.6-1.3); GLUCOSE 85 mg/dL (74-106); POTASSIUM 4.1 mmol/L (3.5-5.1); SODIUM SERUM 136 mmol/L (136-145); UREA NITROGEN, BLOOD 11 mg/dL (7-18)
--- NOTE | 2024-05-19 16:30 | NUR ---
UA SENT TO LAB
[2024-05-19 16:47] VITALS: BP 130/59; O2SAT 100
--- NOTE | 2024-05-19 16:57 | NUR ---
IV removed. Catheter intact and site benign. Pressure and 4x4 applied to site. No bleeding noted.
--- NOTE | 2024-05-19 17:00 | NUR ---
Patient discharged to home in stable condition. Written and verbal after care instructions given. Patient verbalizes understanding of instruction.
[2024-05-19 17:20] LABS: APPEARANCE,URINE CLEAR (CLEAR); BILIRUBIN,URINE NEGATIVE (NEGATIVE); BLOOD, URINE 1+ Ery/uL (NEGATIVE); COLOR,URINE YELLOW (YELLOW); KETONES,URINE NEGATIVE (NEGATIVE); LEUKOCYTE ESTERASE ,URINE NEGATIVE (NEGATIVE); NITRITE, URINE NEGATIVE (NEGATIVE); PH,URINE 6.5 (5.0-8.0); PROTEIN,URINE NEGATIVE (NEGATIVE); UGLUCOSE NEGATIVE (NEGATIVE); UROBILINOGEN,URINE 0.2 EU/dL (0.2)
[2024-05-19 17:26] LABS: ANISOCYTOSIS 1+; EOSINOPHILS % (MANUAL) 10 % (0-4); LYMPHOCYTES % (MANUAL) 39 % (16-48); MONOCYTES % (MANUAL) 8 % (0-11.0); NEUTROPHILS % (MANUAL) 43 (42-76); PLATELET ESTIMATE ADEQUATE; ROULEAUX 1+
[2024-05-19 17:28] LABS: ADD URINE CULTURE NO; BACTERIA,URINE None seen /HPF (None Seen); SQUAMOUS EPITHELIAL CELL,UR 0-2 /HPF (None Seen); WBC,URINE 0-2 /HPF (0-3)
== END | disposition home or self-care (01) ==
LOC: ER 15:10
DX: R42 Dizziness and giddiness (principal); G43.909 Migraine, unspecified, not intractable, without status migrainosus; G62.9 Polyneuropathy, unspecified; I10 Essential (primary) hypertension; K21.9 Gastro-esophageal reflux disease without esophagitis; I25.10 Atherosclerotic heart disease of native coronary artery without angina pectoris; M19.90 Unspecified osteoarthritis, unspecified site; M81.0 Age-related osteoporosis without current pathological fracture; Z90.710 Acquired absence of both cervix and uterus; Z88.0 Allergy status to penicillin; Z88.2 Allergy status to sulfonamides; Z88.5 Allergy status to narcotic agent; Z88.6 Allergy status to analgesic agent; Z88.8 Allergy status to other drugs, medicaments and biological substances; Z87.891 Personal history of nicotine dependence; Z85.118 Personal history of other malignant neoplasm of bronchus and lung
CPT/HCPCS: 99285; 96360; 70450; 71045; 93005; 85025; 80048; 81001; 36415; 84484; 82962; 85007; J7030

== ENCOUNTER 2024-06-03 12:28 | Emergency (ER) | payer MEDICARE, OTHER ==
[~2024-06-03] VITALS: Ht 162.6 cm; Wt 72.6 kg
[~2024-06-03 12:28] MED LIST changes: -SUMA100T PO
[2024-06-03] MEDS: SUMATRIPTAN SUCCINATE 25 MG TABLET PO ONE (14:47)
[2024-06-03] MEDS ORDERED: SUMATRIPTAN SUCCINATE 25 MG TABLET ONE (14:47)
[2024-06-03 15:08] LABS: BASOPHILS % (AUTO) 0.7 % (0.0-2.0); EOSINOPHILS # (AUTO) 1.2 K/uL (0.0-0.7); EOSINOPHILS % (AUTO) 24.8 % (0.0-6.0); HEMATOCRIT 38 % (33-45); HEMOGLOBIN 12.6 g/dL (11.5-14.8); LYMPHOCYTES # (AUTO) 1.2 K/uL (0.8-4.8); LYMPHOCYTES % (AUTO) 23.3 % (20.0-44.0); MEAN CORPUSCULAR HEMOGLOBIN 34 PG (26.0-33.0); MEAN CORPUSCULAR HGB CONC 33 g/dl (31.0-36.0); MEAN CORPUSCULAR VOLUME 103 fL (82-100); MONOCYTES # (AUTO) 0.5 K/uL (0.1-1.30); MONOCYTES % (AUTO) 9.4 % (2.0-12.0); NEUTROPHILS # (AUTO) 2.1 K/uL (1.8-8.9); NEUTROPHILS % (AUTO) 41.8 % (43.0-81.0); PLATELET COUNT (AUTO) 156 K/uL (150-450); RED BLOOD CELL COUNT(AUTO) 3.71 MIL/uL (4.0-5.2); RED CELL DISTRIBUTION WIDTH 15.1 % (11.5-15.0)
[2024-06-03 15:23] LABS: CALCIUM, SERUM 8.9 mg/dL (8.5-10.1); CARBON DIOXIDE 29 mmol/L (21-32); CHLORIDE 104 mmol/L (98-107); CREATININE 0.9 mg/dL (0.6-1.3); GLUCOSE 100 mg/dL (74-106); POTASSIUM 4.2 mmol/L (3.5-5.1); SODIUM SERUM 139 mmol/L (136-145); UREA NITROGEN, BLOOD 17 mg/dL (7-18)
[2024-06-03 15:26] LABS: INR 0.97 (0.91-1.10); PARTIAL THROMBOPLASTIN TIME 25.9 SEC (24.3-34.3); PROTHROMBIN TIME 10.3 SECS (9.2-11.1)
[2024-06-03 15:43] LABS: ALANINE AMINOTRANSFERASE 15 U/L (12-78); ALBUMIN 3.4 g/dL (3.4-5.0); ALKALINE PHOSPHATASE 49 U/L (46-116); ASPARTATE AMINOTRANSFERASE 12 U/L (15-37); BILIRUBIN,DIRECT 0.1 mg/dL (0.0-0.2); BILIRUBIN,TOTAL 0.3 mg/dL (0.2-1.0); TOTAL PROTEIN, SERUM 6.6 g/dL (6.4-8.2)
[2024-06-03] MEDS ORDERED: SUMA100T PO (16:34)
[2024-06-03 16:53] LABS: ANISOCYTOSIS 1+; BAND % (MANUAL) 1 % (0.0-5.0); BASOPHILS % (MANUAL) 1 % (0.0-2.0); EOSINOPHILS % (MANUAL) 19 % (0-4); LYMPHOCYTES % (MANUAL) 26 % (16-48); MONOCYTES % (MANUAL) 3 % (0-11.0); NEUTROPHILS % (MANUAL) 50 (42-76); PLATELET ESTIMATE ADEQU
[2024-06-03 19:06] VITALS: BP 118/70; TEMP 98; O2SAT 97
== END 2024-06-03 19:07 | disposition home or self-care (01) ==
LOC: ER 12:33
DX: G43.909 Migraine, unspecified, not intractable, without status migrainosus (principal); K21.9 Gastro-esophageal reflux disease without esophagitis; Z98.890 Other specified postprocedural states; I10 Essential (primary) hypertension; Z79.52 Long term (current) use of systemic steroids; Z79.899 Other long term (current) drug therapy; Z88.2 Allergy status to sulfonamides; Z88.5 Allergy status to narcotic agent; Z88.0 Allergy status to penicillin; Z88.8 Allergy status to other drugs, medicaments and biological substances
CPT/HCPCS: 36415; 71045-TC; 80048-TC; 80076-TC; 84484-TC; 85025-TC; 85730-TC

== ENCOUNTER 2024-06-17 18:18 | Emergency (ER) | payer MEDICARE, OTHER ==
[~2024-06-17 18:18] MED LIST changes: +SUMA100T PO
== END 2024-06-17 19:36 | disposition left against medical advice (07) ==
LOC: ER 18:28
DX: M79.10 Myalgia, unspecified site (principal); R07.89 Other chest pain; Z53.21 Procedure and treatment not carried out due to patient leaving prior to being seen by health care provider

== ENCOUNTER 2024-06-26 19:30 | Inpatient (IN) | payer MEDICARE, OTHER ==
[~2024-06-26] VITALS: Ht 160 cm; Wt 83.5 kg
[2024-06-26] MEDS ORDERED: METOCLOPRAMIDE HCL 10 MG/2 ML VIAL ONE (20:30)
[2024-06-26] MEDS: METOCLOPRAMIDE HCL 10 MG/2 ML VIAL IV ONE (20:33)
[2024-06-26] MEDS: IV NS 0.9% 1,000 ML BAG IV ONE (20:33)
[2024-06-26 20:48] LABS: BASOPHILS % (AUTO) 0.6 % (0.0-2.0); EOSINOPHILS # (AUTO) 0.7 K/uL (0.0-0.7); EOSINOPHILS % (AUTO) 15.2 % (0.0-6.0); HEMATOCRIT 32 % (33-45); HEMOGLOBIN 10.9 g/dL (11.5-14.8); LYMPHOCYTES % (AUTO) 41.8 % (20.0-44.0); MEAN CORPUSCULAR HEMOGLOBIN 35 PG (26.0-33.0); MEAN CORPUSCULAR HGB CONC 34 g/dl (31.0-36.0); MEAN CORPUSCULAR VOLUME 103 fL (82-100); MONOCYTES # (AUTO) 0.5 K/uL (0.1-1.30); MONOCYTES % (AUTO) 9.9 % (2.0-12.0); NEUTROPHILS # (AUTO) 1.6 K/uL (1.8-8.9); NEUTROPHILS % (AUTO) 32.5 % (43.0-81.0); PLATELET COUNT (AUTO) 131 K/uL (150-450); RED CELL DISTRIBUTION WIDTH 13.5 % (11.5-15.0); WHITE BLOOD COUNT (AUTO) 4.8 K/uL (4.3-11.0)
[2024-06-26 20:56] LABS: CALCIUM, SERUM 7.8 mg/dL (8.5-10.1); CARBON DIOXIDE 22 mmol/L (21-32); CHLORIDE 84 mmol/L (98-107); CREATININE 0.9 mg/dL (0.6-1.3); GLUCOSE 90 mg/dL (74-106); POTASSIUM 3.7 mmol/L (3.5-5.1); UREA NITROGEN, BLOOD 15 mg/dL (7-18)
[2024-06-26 20:58] LABS: SODIUM SERUM 114 mmol/L (136-145)
[2024-06-26 21:48] LABS: ANISOCYTOSIS 1+; EOSINOPHILS % (MANUAL) 11 % (0-4); LYMPHOCYTES % (MANUAL) 35 % (16-48); MONOCYTES % (MANUAL) 4 % (0-11.0); NEUTROPHILS % (MANUAL) 50 (42-76); PLATELET ESTIMATE DECRE
[2024-06-26] MEDS ORDERED: ACETAMINOPHEN 325 MG TABLET PO PRN (22:00)
[2024-06-26] MEDS ORDERED: MAG HYDROX/AL HYDROX/SIMETH 30 ML UDC PO PRN (22:00)
[2024-06-26] MEDS ORDERED: MAGNESIUM HYDROXIDE 30 ML UDC PO PRN (22:00)
[2024-06-26 22:20] VITALS: BP 100/58; TEMP 97.5; O2SAT 97
[2024-06-26] MEDS: IV NS 0.9% 1,000 ML IV PRN (22:29)
[2024-06-26 22:30] VITALS: BP 100/58; TEMP 97.5; O2SAT 97
[2024-06-27] VITALS: BP 100/57; TEMP 97.3; O2SAT 97
[2024-06-27] MEDS: TRAZODONE 50 MG TABLET PO PRN (00:49)
[2024-06-27 06:58] LABS: BASOPHILS % (AUTO) 0.4 % (0.0-2.0); EOSINOPHILS # (AUTO) 0.7 K/uL (0.0-0.7); HEMATOCRIT 34 % (33-45); HEMOGLOBIN 11.6 g/dL (11.5-14.8); LYMPHOCYTES % (AUTO) 24.8 % (20.0-44.0); MEAN CORPUSCULAR HEMOGLOBIN 35 PG (26.0-33.0); MEAN CORPUSCULAR HGB CONC 34 g/dl (31.0-36.0); MEAN CORPUSCULAR VOLUME 101 fL (82-100); MONOCYTES # (AUTO) 0.5 K/uL (0.1-1.30); MONOCYTES % (AUTO) 10.9 % (2.0-12.0); NEUTROPHILS % (AUTO) 47.9 % (43.0-81.0); PLATELET COUNT (AUTO) 128 K/uL (150-450); RED BLOOD CELL COUNT(AUTO) 3.34 MIL/uL (4.0-5.2); RED CELL DISTRIBUTION WIDTH 13.8 % (11.5-15.0); WHITE BLOOD COUNT (AUTO) 4.2 K/uL (4.3-11.0)
[2024-06-27 07:06] LABS: ALANINE AMINOTRANSFERASE 17 U/L (12-78); ALBUMIN 2.9 g/dL (3.4-5.0); ALKALINE PHOSPHATASE 40 U/L (46-116); ASPARTATE AMINOTRANSFERASE 14 U/L (15-37); BILIRUBIN,DIRECT 0.2 mg/dL (0.0-0.2); BILIRUBIN,TOTAL 0.6 mg/dL (0.2-1.0); CARBON DIOXIDE 26 mmol/L (21-32); CHLORIDE 97 mmol/L (98-107); CREATININE 0.6 mg/dL (0.6-1.3); GLUCOSE 94 mg/dL (74-106); MAGNESIUM 2.3 mg/dL (1.8-2.4); PHOSPHORUS 3.5 mg/dL (2.5-4.9); POTASSIUM 3.8 mmol/L (3.5-5.1); SODIUM SERUM 130 mmol/L (136-145); TOTAL PROTEIN, SERUM 5.4 g/dL (6.4-8.2); UREA NITROGEN, BLOOD 13 mg/dL (7-18)
[2024-06-27 07:14] LABS: CHOLESTEROL 110 mg/dL (<200); HDL CHOLESTEROL 51 mg/dL (40-60); LDL 42 mg/dL (0-99); TRIGLYCERIDES 93 mg/dL (30-150)
[2024-06-27 08:00] VITALS: BP 107/51; TEMP 98.1; O2SAT 98
[2024-06-27] MEDS: PANTOPRAZOLE 40 MG TABLET.DR PO SCH (08:45)
[2024-06-27] MEDS ORDERED: SENNOSIDES 8.6 MG TABLET PO PRN (11:00)
[2024-06-27] MEDS ORDERED: POLYETHYLENE GLYCOL 3350 17 GM POWD.PACK PO PRN (11:00)
[2024-06-27] MEDS ORDERED: LORATADINE 10 MG TABLET PO PRN (11:00)
[2024-06-27] MEDS: SUMATRIPTAN SUCCINATE 100 MG TABLET PO PRN (13:05)
[2024-06-27] MEDS: METOPROLOL TARTRATE 50 MG TABLET PO SCH (13:06)
[2024-06-27] MEDS: IV D5W 1,000 ML IV ONE (13:22)
[2024-06-27] MEDS: IV D5W 1,000 ML IV PRN (16:01)
[2024-06-27 16:10] VITALS: BP 135/63; TEMP 98.2; O2SAT 99
[2024-06-27] MEDS: LORAZEPAM 0.5 MG TABLET PO PRN (17:24)
[2024-06-27] MEDS: LEVETIRACETAM (250 MG) 250 MG TABLET PO SCH (17:24)
[2024-06-27 20:00] VITALS: BP 114/52; TEMP 97.7; O2SAT 96
[2024-06-27 20:16] VITALS: BP 114/52; TEMP 97.7; O2SAT 96
[2024-06-27] MEDS: BENZONATATE 100 MG CAPSULE PO PRN (21:14)
[2024-06-27] MEDS: GABAPENTIN 300 MG CAPSULE PO SCH (21:14)
[2024-06-27] MEDS: ATORVASTATIN 40 MG TABLET PO SCH (21:14)
[2024-06-27] MEDS: MIRTAZAPINE 15 MG TABLET PO SCH (21:14)
[2024-06-27 21:32] LABS: CALCIUM, SERUM 8.3 mg/dL (8.5-10.1); CARBON DIOXIDE 27 mmol/L (21-32); CHLORIDE 100 mmol/L (98-107); CREATININE 0.6 mg/dL (0.6-1.3); GLUCOSE 142 mg/dL (74-106); POTASSIUM 3.6 mmol/L (3.5-5.1); SODIUM SERUM 131 mmol/L (136-145); UREA NITROGEN, BLOOD 8 mg/dL (7-18)
[2024-06-28] VITALS (8 sets, daily range): BP systolic 98–158; BP diastolic 52–76; TEMP 97.9–98.5; O2SAT 98–100
[2024-06-28 07:09] LABS: BASOPHILS % (AUTO) 0.4 % (0.0-2.0); EOSINOPHILS % (AUTO) 17.6 % (0.0-6.0); HEMATOCRIT 37 % (33-45); HEMOGLOBIN 12.3 g/dL (11.5-14.8); LYMPHOCYTES % (AUTO) 16.7 % (20.0-44.0); MEAN CORPUSCULAR HEMOGLOBIN 34 PG (26.0-33.0); MEAN CORPUSCULAR HGB CONC 34 g/dl (31.0-36.0); MEAN CORPUSCULAR VOLUME 102 fL (82-100); MONOCYTES # (AUTO) 0.5 K/uL (0.1-1.30); MONOCYTES % (AUTO) 9.5 % (2.0-12.0); NEUTROPHILS # (AUTO) 3.2 K/uL (1.8-8.9); NEUTROPHILS % (AUTO) 55.8 % (43.0-81.0); PLATELET COUNT (AUTO) 136 K/uL (150-450); RED BLOOD CELL COUNT(AUTO) 3.59 MIL/uL (4.0-5.2); RED CELL DISTRIBUTION WIDTH 14.2 % (11.5-15.0); WHITE BLOOD COUNT (AUTO) 5.8 K/uL (4.3-11.0)
[2024-06-28 07:30] LABS: ALANINE AMINOTRANSFERASE 11 U/L (12-78); ALKALINE PHOSPHATASE 38 U/L (46-116); ASPARTATE AMINOTRANSFERASE 10 U/L (15-37); BILIRUBIN,TOTAL 0.4 mg/dL (0.2-1.0); CALCIUM, SERUM 8.3 mg/dL (8.5-10.1); CARBON DIOXIDE 27 mmol/L (21-32); CHLORIDE 102 mmol/L (98-107); CREATININE 0.6 mg/dL (0.6-1.3); GLUCOSE 136 mg/dL (74-106); MAGNESIUM 2.2 mg/dL (1.8-2.4); PHOSPHORUS 2.9 mg/dL (2.5-4.9); POTASSIUM 3.8 mmol/L (3.5-5.1); SODIUM SERUM 134 mmol/L (136-145); TOTAL PROTEIN, SERUM 5.7 g/dL (6.4-8.2); UREA NITROGEN, BLOOD 5 mg/dL (7-18)
[2024-06-28 07:35] LABS: THYROID STIMULATING HORMONE 0.43 uIU/mL (0.358-3.74); URIC ACID 2.7 mg/dL (2.6-7.2)
[2024-06-28 08:11] LABS: FOLIC ACID 7.8 ng/mL (>3.0)
[2024-06-28] MEDS: LIDOCAINE 5% (PATCH) 1 EA PATCH TP SCH (09:28)
[2024-06-28 15:05] LABS: APPEARANCE,URINE CLEAR (CLEAR); BILIRUBIN,URINE NEGATIVE (NEGATIVE); BLOOD, URINE 1+ Ery/uL (NEGATIVE); COLOR,URINE YELLOW (YELLOW); KETONES,URINE NEGATIVE (NEGATIVE); LEUKOCYTE ESTERASE ,URINE 1+ (NEGATIVE); NITRITE, URINE NEGATIVE (NEGATIVE); PROTEIN,URINE NEGATIVE (NEGATIVE); UGLUCOSE NEGATIVE (NEGATIVE); UROBILINOGEN,URINE 0.2 EU/dL (0.2)
[2024-06-28 15:11] LABS: CREATININE, URINE 27.4 MG/DL (30.0-125.0); URINE TOTAL PROTEIN 7.2 mg/dL (0-11.9)
[2024-06-28 15:18] LABS: ADD URINE CULTURE YES; BACTERIA,URINE 1+ /HPF (None Seen); SQUAMOUS EPITHELIAL CELL,UR Few /HPF (None Seen); WBC,URINE 0-2 /HPF (0-3)
[2024-06-28 15:51] LABS: EOSINOPHIL,URINE None Seen
[2024-06-28] MEDS: ONDANSETRON HCL/PF 4 MG/2 ML VIAL IVP PRN (16:20)
[2024-06-28] MEDS ORDERED: IOHEXOL-300 100 ML VIAL IV ONE (17:22)
[2024-06-28] MEDS ORDERED: IV NS 0.9% 250 ML IV ONE (17:22)
[2024-06-28] MEDS ORDERED: METOPROLOL TARTRATE 50 MG TABLET PO SCH (21:00)
[2024-06-29] VITALS: BP 121/88; TEMP 98.1; O2SAT 98
[2024-06-29 07:05] LABS: BASOPHILS % (AUTO) 0.3 % (0.0-2.0); EOSINOPHILS # (AUTO) 1.4 K/uL (0.0-0.7); EOSINOPHILS % (AUTO) 24.4 % (0.0-6.0); HEMATOCRIT 36 % (33-45); HEMOGLOBIN 12.1 g/dL (11.5-14.8); LYMPHOCYTES # (AUTO) 1.2 K/uL (0.8-4.8); LYMPHOCYTES % (AUTO) 19.8 % (20.0-44.0); MEAN CORPUSCULAR HEMOGLOBIN 34 PG (26.0-33.0); MEAN CORPUSCULAR HGB CONC 34 g/dl (31.0-36.0); MEAN CORPUSCULAR VOLUME 102 fL (82-100); MONOCYTES # (AUTO) 0.5 K/uL (0.1-1.30); MONOCYTES % (AUTO) 9.3 % (2.0-12.0); NEUTROPHILS # (AUTO) 2.7 K/uL (1.8-8.9); NEUTROPHILS % (AUTO) 46.2 % (43.0-81.0); PLATELET COUNT (AUTO) 137 K/uL (150-450); RED BLOOD CELL COUNT(AUTO) 3.52 MIL/uL (4.0-5.2); RED CELL DISTRIBUTION WIDTH 14.1 % (11.5-15.0); WHITE BLOOD COUNT (AUTO) 5.9 K/uL (4.3-11.0)
[2024-06-29 07:06] LABS: CALCIUM, SERUM 8.4 mg/dL (8.5-10.1); CARBON DIOXIDE 25 mmol/L (21-32); CHLORIDE 96 mmol/L (98-107); CREATININE 0.6 mg/dL (0.6-1.3); GLUCOSE 133 mg/dL (74-106); MAGNESIUM 1.9 mg/dL (1.8-2.4); PHOSPHORUS 3.1 mg/dL (2.5-4.9); POTASSIUM 3.4 mmol/L (3.5-5.1); SODIUM SERUM 129 mmol/L (136-145); UREA NITROGEN, BLOOD 4 mg/dL (7-18)
[2024-06-29 09:01] LABS: BILIRUBIN,DIRECT 0.1 mg/dL (0.0-0.2); BILIRUBIN,TOTAL 0.4 mg/dL (0.2-1.0); TOTAL PROTEIN, SERUM 5.7 g/dL (6.4-8.2)
[2024-06-29] MEDS: POTASSIUM CHLORIDE 20 MEQ TAB.PRT.SR PO ONE (10:48)
[2024-06-29] MEDS: CIPROFLOXACIN IV RTU 400 MG in PREMIX 1 EA IV SCH (10:54)
[2024-06-29 11:17] LABS: ANISOCYTOSIS 1+; EOSINOPHILS % (MANUAL) 25 % (0-4); LYMPHOCYTES % (MANUAL) 17 % (16-48); MONOCYTES % (MANUAL) 6 % (0-11.0); NEUTROPHILS % (MANUAL) 52 (42-76); PLATELET ESTIMATE DECREASED
[2024-06-29] MEDS: Z GUARD REMEDY 4 OZ OINT TP PRN (12:58)
[2024-06-29] MEDS: METRONIDAZOLE 500MG/ NS 100ML 500 MG in PREMIX 1 EA IV SCH (13:00)
[2024-06-29 16:00] VITALS: BP 124/69; TEMP 98; O2SAT 100
[2024-06-29 20:00] VITALS: BP 111/70; TEMP 97.7; O2SAT 99
[2024-06-30 06:47] LABS: BASOPHILS % (AUTO) 0.5 % (0.0-2.0); EOSINOPHILS # (AUTO) 1.4 K/uL (0.0-0.7); EOSINOPHILS % (AUTO) 23.3 % (0.0-6.0); HEMATOCRIT 37 % (33-45); HEMOGLOBIN 12.5 g/dL (11.5-14.8); LYMPHOCYTES # (AUTO) 1.4 K/uL (0.8-4.8); MEAN CORPUSCULAR HEMOGLOBIN 35 PG (26.0-33.0); MEAN CORPUSCULAR HGB CONC 34 g/dl (31.0-36.0); MEAN CORPUSCULAR VOLUME 102 fL (82-100); MONOCYTES # (AUTO) 0.5 K/uL (0.1-1.30); MONOCYTES % (AUTO) 8.4 % (2.0-12.0); NEUTROPHILS # (AUTO) 2.7 K/uL (1.8-8.9); NEUTROPHILS % (AUTO) 44.8 % (43.0-81.0); PLATELET COUNT (AUTO) 153 K/uL (150-450); RED BLOOD CELL COUNT(AUTO) 3.59 MIL/uL (4.0-5.2); RED CELL DISTRIBUTION WIDTH 14.2 % (11.5-15.0); WHITE BLOOD COUNT (AUTO) 5.9 K/uL (4.3-11.0)
[2024-06-30 07:02] LABS: ALANINE AMINOTRANSFERASE 15 U/L (12-78); ALBUMIN 3.1 g/dL (3.4-5.0); ALKALINE PHOSPHATASE 49 U/L (46-116); ASPARTATE AMINOTRANSFERASE 8 U/L (15-37); BILIRUBIN,DIRECT 0.1 mg/dL (0.0-0.2); BILIRUBIN,TOTAL 0.3 mg/dL (0.2-1.0); CALCIUM, SERUM 8.5 mg/dL (8.5-10.1); CARBON DIOXIDE 29 mmol/L (21-32); CHLORIDE 100 mmol/L (98-107); CREATININE 0.5 mg/dL (0.6-1.3); GLUCOSE 115 mg/dL (74-106); MAGNESIUM 2.2 mg/dL (1.8-2.4); PHOSPHORUS 3.4 mg/dL (2.5-4.9); SODIUM SERUM 134 mmol/L (136-145); UREA NITROGEN, BLOOD 5 mg/dL (7-18)
[2024-06-30 08:00] VITALS: BP 119/57; TEMP 97.5; O2SAT 100
[2024-06-30 14:39] LABS: BAND % (MANUAL) 1 % (0.0-5.0); NEUTROPHILS % (MANUAL) 45 (42-76)
[2024-06-30 14:40] LABS: EOSINOPHILS % (MANUAL) 21 % (0-4); LYMPHOCYTES % (MANUAL) 27 % (16-48); MONOCYTES % (MANUAL) 6 % (0-11.0)
[2024-06-30 14:41] LABS: PLATELET ESTIMATE ADEQUATE
[2024-06-30 22:11] LABS: VITAMIN B1 THIAMINE,WB 90.3 nmol/L (66.5-200.0)
== END 2024-06-30 13:25 | disposition home health service (06) | DRG 641 ==
LOC: ER 19:32 → TELE 21:32 → MED 06-29 11:58
PROVIDERS: ADMIT Nurse Practitioner Family; ATTEND Nurse Practitioner Family
DX: E87.1 Hypo-osmolality and hyponatremia (principal); H81.10 Benign paroxysmal vertigo, unspecified ear; I95.1 Orthostatic hypotension; D64.9 Anemia, unspecified; G40.909 Epilepsy, unspecified, not intractable, without status epilepticus; G43.909 Migraine, unspecified, not intractable, without status migrainosus; E83.51 Hypocalcemia; E66.3 Overweight; E78.5 Hyperlipidemia, unspecified; E86.9 Volume depletion, unspecified; I10 Essential (primary) hypertension; J45.909 Unspecified asthma, uncomplicated; Z79.899 Other long term (current) drug therapy; Z82.3 Family history of stroke; Z85.118 Personal history of other malignant neoplasm of bronchus and lung; Z88.2 Allergy status to sulfonamides; F17.210 Nicotine dependence, cigarettes, uncomplicated; K80.20 Calculus of gallbladder without cholecystitis without obstruction; K52.9 Noninfective gastroenteritis and colitis, unspecified; Z88.0 Allergy status to penicillin; Z68.32 Body mass index [BMI] 32.0-32.9, adult
CPT/HCPCS: 36415; 70450-TC; 78226; 80048-TC; 80053-TC; 80061-TC; 80076-TC; 81001; 82570-TC; 82607-TC; 83690-TC; 83735-TC; 83921; 83935-TC; 84100-TC; 84300-TC; 84425; 84443-TC; 84484-TC; 84550-TC; 85025-TC; 87086-TC; 97110-TC; 97112-TC; 97116-TC; 97530-TC; 97535-TC; A4216; A4223; A9537; G0378; J0744; J2405; J2765; J7030; J7050; J7070; Q9967

== ENCOUNTER 2024-12-14 18:17 | Emergency (ER) | payer MEDICARE, OTHER ==
[~2024-12-14] VITALS: Ht 162.6 cm; Wt 74.4 kg
[~2024-12-14 18:17] MED LIST changes: -FURO-145 PO; -MELO-105 PO; -METO50TA16 PO; -MINO100T PO; -NALO4SPR NAS; -SUMA100T PO
[2024-12-14 18:24] VITALS: TEMP 98.6
[2024-12-14] MEDS: MORPHINE SULFATE INJ 2 MG/ML DISP.SYRIN IM ONE (19:53)
[2024-12-14 20:04] VITALS: BP 130/75; O2SAT 98
== END 2024-12-14 20:38 | disposition home or self-care (01) ==
LOC: ER 19:02
DX: G43.909 Migraine, unspecified, not intractable, without status migrainosus (principal); I10 Essential (primary) hypertension; M19.90 Unspecified osteoarthritis, unspecified site; Z79.899 Other long term (current) drug therapy; Z85.118 Personal history of other malignant neoplasm of bronchus and lung; Z87.891 Personal history of nicotine dependence; Z88.0 Allergy status to penicillin; Z88.2 Allergy status to sulfonamides; Z88.5 Allergy status to narcotic agent; Z90.710 Acquired absence of both cervix and uterus; Z98.890 Other specified postprocedural states; Z88.6 Allergy status to analgesic agent
CPT/HCPCS: 99283; 96372; J2270

== ENCOUNTER 2025-01-08 12:57 | Emergency (ER) | payer MEDICARE, OTHER ==
[~2025-01-08] VITALS: Ht 160 cm; Wt 72.6 kg
[2025-01-08] MEDS ORDERED: MECLIZINE HCL 25 MG TABLET ONE (13:34)
[2025-01-08] MEDS: IV NS 0.9% 500 ML BAG IV ONE (13:36)
[2025-01-08] MEDS: MECLIZINE HCL 12.5 MG TABLET PO ONE (13:36)
[2025-01-08 13:44] LABS: BASOPHILS # (AUTO) 0.1 K/uL (0.0-0.2); EOSINOPHILS # (AUTO) 0.2 K/uL (0.0-0.7); EOSINOPHILS % (AUTO) 3.6 % (0.0-6.0); HEMATOCRIT 39 % (33-45); HEMOGLOBIN 13.3 g/dL (11.5-14.8); LYMPHOCYTES % (AUTO) 31.3 % (20.0-44.0); MEAN CORPUSCULAR HEMOGLOBIN 35 PG (26.0-33.0); MEAN CORPUSCULAR HGB CONC 35 g/dl (31.0-36.0); MEAN CORPUSCULAR VOLUME 101 fL (82-100); MONOCYTES # (AUTO) 0.6 K/uL (0.1-1.30); MONOCYTES % (AUTO) 8.6 % (2.0-12.0); NEUTROPHILS # (AUTO) 3.6 K/uL (1.8-8.9); NEUTROPHILS % (AUTO) 55.5 % (43.0-81.0); PLATELET COUNT (AUTO) 210 K/uL (150-450); RED BLOOD CELL COUNT(AUTO) 3.81 MIL/uL (4.0-5.2); RED CELL DISTRIBUTION WIDTH 14.4 % (11.5-15.0); WHITE BLOOD COUNT (AUTO) 6.5 K/uL (4.3-11.0)
[2025-01-08 14:00] LABS: INR 0.97 (0.91-1.10); PARTIAL THROMBOPLASTIN TIME 25.6 SEC (24.3-34.3); PROTHROMBIN TIME 10.3 SECS (9.2-11.1)
[2025-01-08 14:22] LABS: ALANINE AMINOTRANSFERASE 19 U/L (12-78); ALBUMIN 3.6 g/dL (3.4-5.0); ALKALINE PHOSPHATASE 51 U/L (46-116); ASPARTATE AMINOTRANSFERASE 15 U/L (15-37); BILIRUBIN,DIRECT 0.1 mg/dL (0.0-0.2); BILIRUBIN,TOTAL 0.4 mg/dL (0.2-1.0); CALCIUM, SERUM 8.8 mg/dL (8.5-10.1); CARBON DIOXIDE 27 mmol/L (21-32); CHLORIDE 102 mmol/L (98-107); GLUCOSE 97 mg/dL (74-106); POTASSIUM 4.2 mmol/L (3.5-5.1); SODIUM SERUM 136 mmol/L (136-145); TOTAL PROTEIN, SERUM 6.7 g/dL (6.4-8.2); UREA NITROGEN, BLOOD 19 mg/dL (7-18)
[2025-01-08 17:02] VITALS: BP 135/80; TEMP 98.6; O2SAT 98
== END 2025-01-08 17:06 | disposition home or self-care (01) ==
LOC: ER 13:02
DX: R51.9 Headache, unspecified (principal); R42 Dizziness and giddiness; I10 Essential (primary) hypertension; M19.90 Unspecified osteoarthritis, unspecified site; Z79.899 Other long term (current) drug therapy; Z85.118 Personal history of other malignant neoplasm of bronchus and lung; Z87.891 Personal history of nicotine dependence; Z88.0 Allergy status to penicillin; Z88.2 Allergy status to sulfonamides; Z88.5 Allergy status to narcotic agent; Z88.6 Allergy status to analgesic agent; Z90.710 Acquired absence of both cervix and uterus; Z98.890 Other specified postprocedural states
CPT/HCPCS: 99285; 70450; 71045; 93005; 85025; 80048; 80076; 36415; 84484; 85730; J8597; J7040

== ENCOUNTER 2025-01-23 17:16 | Emergency (ER) | payer MEDICARE, OTHER ==
[~2025-01-23] VITALS: Ht 160 cm; Wt 72.6 kg
[2025-01-23 17:40] LABS: BASOPHILS # (AUTO) 0.1 K/uL (0.0-0.2); EOSINOPHILS # (AUTO) 0.2 K/uL (0.0-0.7); HEMATOCRIT 40 % (33-45); HEMOGLOBIN 13.7 g/dL (11.5-14.8); LYMPHOCYTES # (AUTO) 2.3 K/uL (0.8-4.8); LYMPHOCYTES % (AUTO) 39.9 % (20.0-44.0); MEAN CORPUSCULAR HEMOGLOBIN 35 PG (26.0-33.0); MEAN CORPUSCULAR HGB CONC 34 g/dl (31.0-36.0); MEAN CORPUSCULAR VOLUME 102 fL (82-100); MONOCYTES # (AUTO) 0.6 K/uL (0.1-1.30); MONOCYTES % (AUTO) 10.8 % (2.0-12.0); NEUTROPHILS # (AUTO) 2.5 K/uL (1.8-8.9); NEUTROPHILS % (AUTO) 44.3 % (43.0-81.0); PLATELET COUNT (AUTO) 194 K/uL (150-450); RED BLOOD CELL COUNT(AUTO) 3.93 MIL/uL (4.0-5.2); RED CELL DISTRIBUTION WIDTH 14.2 % (11.5-15.0); WHITE BLOOD COUNT (AUTO) 5.7 K/uL (4.3-11.0)
[2025-01-23 17:47] LABS: CALCIUM, SERUM 9.7 mg/dL (8.5-10.1); CARBON DIOXIDE 29 mmol/L (21-32); CHLORIDE 104 mmol/L (98-107); CREATININE 0.8 mg/dL (0.6-1.3); GLUCOSE 104 mg/dL (74-106); POTASSIUM 4.4 mmol/L (3.5-5.1); SODIUM SERUM 139 mmol/L (136-145); UREA NITROGEN, BLOOD 18 mg/dL (7-18)
[2025-01-23 18:00] LABS: ALANINE AMINOTRANSFERASE 14 U/L (12-78); ALBUMIN 3.9 g/dL (3.4-5.0); ALKALINE PHOSPHATASE 51 U/L (46-116); ASPARTATE AMINOTRANSFERASE 10 U/L (15-37); BILIRUBIN,DIRECT 0.1 mg/dL (0.0-0.2); BILIRUBIN,TOTAL 0.3 mg/dL (0.2-1.0); NT-PRO BNP 226 pg/mL (0-125); TOTAL PROTEIN, SERUM 7.1 g/dL (6.4-8.2)
[2025-01-23 20:23] VITALS: BP 164/90; TEMP 98.5; O2SAT 99
== END 2025-01-23 20:27 | disposition home or self-care (01) ==
LOC: ER 17:18
DX: R42 Dizziness and giddiness (principal); I10 Essential (primary) hypertension; M19.90 Unspecified osteoarthritis, unspecified site; Z79.899 Other long term (current) drug therapy; Z85.118 Personal history of other malignant neoplasm of bronchus and lung; Z87.891 Personal history of nicotine dependence; Z88.0 Allergy status to penicillin; Z88.2 Allergy status to sulfonamides; Z88.5 Allergy status to narcotic agent; Z88.6 Allergy status to analgesic agent; Z90.710 Acquired absence of both cervix and uterus; Z98.890 Other specified postprocedural states
CPT/HCPCS: 36415; 70450-TC; 71045-TC; 80048-TC; 80076-TC; 82962-TC; 83880; 84484-TC; 85025-TC

== ENCOUNTER 2025-03-11 10:49 | Inpatient (IN) | payer MEDICAID, OTHER ==
[~2025-03-11] VITALS: Ht 160 cm; Wt 80.7 kg
[2025-03-11] MEDS ORDERED: MORPHINE SULFATE INJ 4 MG/ML DISP.SYRIN ONE (11:06)
[2025-03-11] MEDS ORDERED: ONDANSETRON HCL/PF 4 MG/2 ML VIAL ONE (11:06)
[2025-03-11] MEDS: MORPHINE SULFATE INJ 2 MG/ML DISP.SYRIN IV ONE (11:51)
[2025-03-11] MEDS: IV NS 0.9% 1,000 ML BAG IV ONE (11:51)
[2025-03-11] MEDS: ONDANSETRON HCL/PF 4 MG/2 ML VIAL IVP ONE (11:52)
[2025-03-11 11:55] LABS: BASOPHILS % (AUTO) 0.5 % (0.0-2.0); EOSINOPHILS # (AUTO) 0.4 K/uL (0.0-0.7); EOSINOPHILS % (AUTO) 5.1 % (0.0-6.0); HEMATOCRIT 39 % (33-45); LYMPHOCYTES # (AUTO) 0.9 K/uL (0.8-4.8); LYMPHOCYTES % (AUTO) 12.3 % (20.0-44.0); MEAN CORPUSCULAR HEMOGLOBIN 34 PG (26.0-33.0); MEAN CORPUSCULAR HGB CONC 33 g/dl (31.0-36.0); MEAN CORPUSCULAR VOLUME 102 fL (82-100); MONOCYTES # (AUTO) 0.6 K/uL (0.1-1.30); MONOCYTES % (AUTO) 8.4 % (2.0-12.0); NEUTROPHILS # (AUTO) 5.1 K/uL (1.8-8.9); NEUTROPHILS % (AUTO) 73.7 % (43.0-81.0); PLATELET COUNT (AUTO) 145 K/uL (150-450); RED BLOOD CELL COUNT(AUTO) 3.85 MIL/uL (4.0-5.2); WHITE BLOOD COUNT (AUTO) 6.9 K/uL (4.3-11.0)
[2025-03-11 12:03] LABS: CALCIUM, SERUM 8.9 mg/dL (8.5-10.1); CREATININE 0.8 mg/dL (0.6-1.3); POTASSIUM 3.3 mmol/L (3.5-5.1)
[2025-03-11] MEDS ORDERED: LORA2TAB95 PO (12:43)
[2025-03-11] MEDS ORDERED: ACETAMINOPHEN 325 MG TABLET PO PRN (14:00)
[2025-03-11] MEDS ORDERED: MAGNESIUM HYDROXIDE 30 ML UDC PO PRN (14:00)
[2025-03-11] MEDS ORDERED: Z GUARD REMEDY 4 OZ OINT TP PRN (14:00)
[2025-03-11] MEDS ORDERED: ONDANSETRON HCL/PF 4 MG/2 ML VIAL IVP PRN (14:00)
[2025-03-11] MEDS ORDERED: HYDROCODONE/APAP 10/325MG TABLET PO PRN (14:00)
[2025-03-11] MEDS: MORPHINE SULFATE INJ 2 MG/ML DISP.SYRIN IV PRN (15:09)
[2025-03-11] MEDS: POTASSIUM CHLORIDE 20 MEQ TAB.PRT.SR PO SCH (16:02)
[2025-03-11 16:56] VITALS: BP 148/73; TEMP 99; O2SAT 95
[2025-03-11 20:45] VITALS: BP 128/85; TEMP 99; O2SAT 94
[2025-03-11] MEDS: LIDOCAINE 5% (PATCH) 1 EA PATCH TP SCH (22:06)
[2025-03-12 07:56] LABS: BASOPHILS % (AUTO) 0.5 % (0.0-2.0); EOSINOPHILS # (AUTO) 0.4 K/uL (0.0-0.7); EOSINOPHILS % (AUTO) 5.2 % (0.0-6.0); HEMATOCRIT 39 % (33-45); HEMOGLOBIN 12.9 g/dL (11.5-14.8); LYMPHOCYTES % (AUTO) 13.2 % (20.0-44.0); MEAN CORPUSCULAR HEMOGLOBIN 34 PG (26.0-33.0); MEAN CORPUSCULAR HGB CONC 33 g/dl (31.0-36.0); MEAN CORPUSCULAR VOLUME 101 fL (82-100); MONOCYTES # (AUTO) 0.6 K/uL (0.1-1.30); MONOCYTES % (AUTO) 8.7 % (2.0-12.0); NEUTROPHILS # (AUTO) 5.2 K/uL (1.8-8.9); NEUTROPHILS % (AUTO) 72.4 % (43.0-81.0); PLATELET COUNT (AUTO) 144 K/uL (150-450); RED BLOOD CELL COUNT(AUTO) 3.81 MIL/uL (4.0-5.2); RED CELL DISTRIBUTION WIDTH 13.7 % (11.5-15.0); WHITE BLOOD COUNT (AUTO) 7.2 K/uL (4.3-11.0)
[2025-03-12 08:00] VITALS: BP 127/113; TEMP 98.2; O2SAT 97; O2SAT 98
[2025-03-12 08:06] LABS: CALCIUM, SERUM 9.3 mg/dL (8.5-10.1); CREATININE 0.8 mg/dL (0.6-1.3); MAGNESIUM 2.3 mg/dL (1.8-2.4); PHOSPHORUS 3.2 mg/dL (2.5-4.9); POTASSIUM 3.7 mmol/L (3.5-5.1)
[2025-03-12] MEDS: HYDROMORPHONE 1 MG/1 ML DISP.SYRIN IV PRN (12:58)
[2025-03-12 16:00] VITALS: BP 126/68; TEMP 98.6; O2SAT 98
[2025-03-12 20:00] VITALS: BP 144/82; TEMP 98.1; O2SAT 96
[2025-03-12] MEDS: MAG HYDROX/AL HYDROX/SIMETH 30 ML UDC PO PRN (20:32)
[2025-03-12] MEDS: TRAZODONE 50 MG TABLET PO PRN (23:12)
[2025-03-13] MEDS ORDERED: LIDOCAINE 5% (PATCH) 1 EA PATCH TP PRN (00:30)
[2025-03-13] MEDS ORDERED: LORATADINE 10 MG TABLET PO PRN (00:30)
[2025-03-13] MEDS ORDERED: ALBUTEROL FS 2.5 MG/3 ML VIAL.NEB NEB PRN (01:00)
[2025-03-13] MEDS: PANTOPRAZOLE 40 MG TABLET.DR PO SCH (06:51)
[2025-03-13 07:23] LABS: BASOPHILS % (AUTO) 0.5 % (0.0-2.0); EOSINOPHILS # (AUTO) 0.4 K/uL (0.0-0.7); EOSINOPHILS % (AUTO) 7.5 % (0.0-6.0); HEMATOCRIT 36 % (33-45); HEMOGLOBIN 12.2 g/dL (11.5-14.8); LYMPHOCYTES % (AUTO) 19.5 % (20.0-44.0); MEAN CORPUSCULAR HEMOGLOBIN 34 PG (26.0-33.0); MEAN CORPUSCULAR HGB CONC 34 g/dl (31.0-36.0); MEAN CORPUSCULAR VOLUME 100 fL (82-100); MONOCYTES # (AUTO) 0.7 K/uL (0.1-1.30); MONOCYTES % (AUTO) 13.3 % (2.0-12.0); NEUTROPHILS % (AUTO) 59.2 % (43.0-81.0); PLATELET COUNT (AUTO) 149 K/uL (150-450); RED BLOOD CELL COUNT(AUTO) 3.58 MIL/uL (4.0-5.2); RED CELL DISTRIBUTION WIDTH 13.4 % (11.5-15.0)
[2025-03-13 07:30] VITALS: BP 123/72; TEMP 98.6; O2SAT 96
[2025-03-13] MEDS: LEVETIRACETAM (250 MG) 250 MG TABLET PO SCH (08:01)
[2025-03-13] MEDS ORDERED: OSIMERTINIB MESYLATE 80 MG PO SCH (09:00)
[2025-03-13] MEDS ORDERED: Medication Not On Formulary EA (Ketotifen Fumarate (Alaway) 1 DROP) EACHEYE SCH (09:00)
[2025-03-13 09:09] LABS: CALCIUM, SERUM 9.3 mg/dL (8.5-10.1); CREATININE 0.8 mg/dL (0.6-1.3); POTASSIUM 3.3 mmol/L (3.5-5.1)
[2025-03-13] MEDS ORDERED: MIRTAZAPINE 15 MG TABLET PO SCH (22:00)
[2025-03-13] MEDS ORDERED: ATORVASTATIN 40 MG TABLET PO SCH (22:00)
== END 2025-03-13 15:38 | disposition home health service (06) | DRG 544 ==
LOC: ER 11:02 → MED 13:55
PROVIDERS: ADMIT Internal Medicine; ATTEND Internal Medicine
DX: M80.88XA Other osteoporosis with current pathological fracture, vertebra(e), initial encounter for fracture (principal); G40.909 Epilepsy, unspecified, not intractable, without status epilepticus; G89.29 Other chronic pain; R29.6 Repeated falls; F41.9 Anxiety disorder, unspecified; G62.9 Polyneuropathy, unspecified; F32.9 Major depressive disorder, single episode, unspecified; E78.5 Hyperlipidemia, unspecified; E87.6 Hypokalemia; S40.022A Contusion of left upper arm, initial encounter; Y92.89 Other specified places as the place of occurrence of the external cause; W01.0XXA Fall on same level from slipping, tripping and stumbling without subsequent striking against object, initial encounter; M15.9 Polyosteoarthritis, unspecified; R51.9 Headache, unspecified; Z87.891 Personal history of nicotine dependence; Z96.652 Presence of left artificial knee joint; Z88.0 Allergy status to penicillin; Z85.118 Personal history of other malignant neoplasm of bronchus and lung; Z82.3 Family history of stroke; Z83.3 Family history of diabetes mellitus; Z82.49 Family history of ischemic heart disease and other diseases of the circulatory system; Z88.5 Allergy status to narcotic agent; Z88.2 Allergy status to sulfonamides; Z88.6 Allergy status to analgesic agent; Z90.710 Acquired absence of both cervix and uterus
CPT/HCPCS: 36415; 70450-TC; 71045-TC; 72100-TC; 72131-TC; 72170-TC; 73060-TC; 73564-TC; 80048-TC; 83735-TC; 84100-TC; 85025-TC; 86850-TC; 97110-TC; 97116-TC; 97530-TC; 97535-TC; G0378; J1171; J2270; J2405; J7030

== ENCOUNTER 2025-03-22 10:06 | Emergency (ER) | payer MEDICAID, OTHER ==
[~2025-03-22] VITALS: Ht 165.1 cm; Wt 90.7 kg
[~2025-03-22 10:06] MED LIST changes: -ERYT3.5O9 EACHEYE; +LORA2TAB95 PO
[2025-03-22] MEDS: MORPHINE SULFATE INJ 2 MG/ML DISP.SYRIN IM ONE (10:30)
[2025-03-22] MEDS: ONDANSETRON 4 MG TAB.RAPDIS SL ONE (10:30)
[2025-03-22] MEDS ORDERED: MORPHINE SULFATE INJ 4 MG/ML DISP.SYRIN ONE (10:35)
[2025-03-22] MEDS ORDERED: ONDANSETRON 4 MG TAB.RAPDIS ONE (10:35)
[2025-03-22 10:42] VITALS: BP 137/83; TEMP 98.9; O2SAT 99
[2025-03-22 14:16] LABS: PLATELET COUNT (AUTO) 198 K/uL (150-450); RED BLOOD CELL COUNT(AUTO) 3.77 MIL/uL (4.0-5.2); RED CELL DISTRIBUTION WIDTH 13.6 % (11.5-15.0); WHITE BLOOD COUNT (AUTO) 5.4 K/uL (4.3-11.0)
[2025-03-22 14:32] LABS: INR 1.02 (0.91-1.10)
[2025-03-22 14:37] LABS: CALCIUM, SERUM 9.2 mg/dL (8.5-10.1); CREATININE 1.1 mg/dL (0.6-1.3); SODIUM SERUM 141 mmol/L (136-145); UREA NITROGEN, BLOOD 16 mg/dL (7-18)
[2025-03-22 14:42] LABS: ASPARTATE AMINOTRANSFERASE 15 U/L (15-37); TOTAL PROTEIN, SERUM 6.9 g/dL (6.4-8.2)
[2025-03-22 15:14] LABS: APPEARANCE,URINE CLEAR (CLEAR); BLOOD, URINE 3+ Ery/uL (NEGATIVE); LEUKOCYTE ESTERASE ,URINE NEGATIVE (NEGATIVE); NITRITE, URINE NEGATIVE (NEGATIVE); UGLUCOSE NEGATIVE (NEGATIVE)
[2025-03-22 15:21] LABS: ADD URINE CULTURE YES; SQUAMOUS EPITHELIAL CELL,UR Moderate /HPF (None Seen)
[2025-03-22 15:22] LABS: COARSE GRANULAR CASTS,URINE Moderate /LPF (None Seen)
[2025-03-22] MEDS ORDERED: MORPHINE SULFATE INJ 2 MG/ML DISP.SYRIN ONE (16:59)
[2025-03-22] MEDS: MORPHINE SULFATE INJ 2 MG/ML DISP.SYRIN IV ONE (17:00)
== END 2025-03-23 00:19 | disposition short-term general hospital (02) ==
LOC: ER 10:09
DX: S32.018A Other fracture of first lumbar vertebra, initial encounter for closed fracture (principal); R10.9 Unspecified abdominal pain; R26.2 Difficulty in walking, not elsewhere classified; G89.29 Other chronic pain; I10 Essential (primary) hypertension; R07.9 Chest pain, unspecified; M19.90 Unspecified osteoarthritis, unspecified site; K21.9 Gastro-esophageal reflux disease without esophagitis; Z79.899 Other long term (current) drug therapy; Z85.118 Personal history of other malignant neoplasm of bronchus and lung; Z87.891 Personal history of nicotine dependence; Z88.0 Allergy status to penicillin; Z88.2 Allergy status to sulfonamides; Z88.6 Allergy status to analgesic agent; Z90.710 Acquired absence of both cervix and uterus; Z98.890 Other specified postprocedural states; Z86.69 Personal history of other diseases of the nervous system and sense organs; Z86.79 Personal history of other diseases of the circulatory system; Z88.8 Allergy status to other drugs, medicaments and biological substances; W01.0XXA Fall on same level from slipping, tripping and stumbling without subsequent striking against object, initial encounter; Y93.89 Activity, other specified; Y92.89 Other specified places as the place of occurrence of the external cause; Y99.8 Other external cause status
CPT/HCPCS: 99285; 96374; 72131; 71045; 93005; 85025; 80048; 87086; 80076; 81001; 36415; 85730; 96372; J2270 ×2; Q0162

== ENCOUNTER 2025-04-04 17:59 | Emergency (ER) | payer MEDICAID, OTHER ==
[~2025-04-04] VITALS: Ht 165.1 cm; Wt 91.2 kg
[2025-04-04] MEDS ORDERED: OXYC5TAB3 PO (19:57)
[2025-04-04] MEDS ORDERED: TRAM50TA2 PO (19:59)
[2025-04-04] MEDS ORDERED: TRAMADOL HCL 50 MG TABLET ONE (20:00)
[2025-04-04] MEDS: TRAMADOL HCL 50 MG TABLET PO ONE (20:10)
[2025-04-04 20:43] VITALS: BP 121/77; TEMP 98.2; O2SAT 98
== END 2025-04-04 20:43 | disposition home or self-care (01) ==
LOC: ER 18:08
DX: S32.018A Other fracture of first lumbar vertebra, initial encounter for closed fracture (principal); M17.0 Bilateral primary osteoarthritis of knee; I10 Essential (primary) hypertension; Z79.899 Other long term (current) drug therapy; Z85.118 Personal history of other malignant neoplasm of bronchus and lung; Z87.891 Personal history of nicotine dependence; Z88.0 Allergy status to penicillin; Z88.2 Allergy status to sulfonamides; Z88.6 Allergy status to analgesic agent; Z90.710 Acquired absence of both cervix and uterus; Z96.652 Presence of left artificial knee joint; Z98.890 Other specified postprocedural states; W01.0XXA Fall on same level from slipping, tripping and stumbling without subsequent striking against object, initial encounter; Y93.89 Activity, other specified; Y92.89 Other specified places as the place of occurrence of the external cause; Y99.8 Other external cause status
CPT/HCPCS: 71045-TC; 72131-TC; 73564-TC

== ENCOUNTER 2025-05-21 20:25 | Inpatient (IN) | payer MEDICARE, OTHER ==
[~2025-05-21] VITALS: Ht 160 cm; Wt 70.3 kg
[~2025-05-21 20:25] MED LIST changes: +TRAM50TA2 PO
[2025-05-21 21:10] LABS: PLATELET COUNT (AUTO) 197 K/uL (150-450); RED BLOOD CELL COUNT(AUTO) 4.15 MIL/uL (4.0-5.2); RED CELL DISTRIBUTION WIDTH 14.5 % (11.5-15.0); WHITE BLOOD COUNT (AUTO) 9.0 K/uL (4.3-11.0)
[2025-05-21 21:25] LABS: ALCOHOL, BLOOD < 3 mg/dL (0-10); ASPARTATE AMINOTRANSFERASE 19 U/L (15-37); CALCIUM, SERUM 10.0 mg/dL (8.5-10.1); CREATININE 1.5 mg/dL (0.6-1.3); SODIUM SERUM 147 mmol/L (136-145); TOTAL PROTEIN, SERUM 7.2 g/dL (6.4-8.2); UREA NITROGEN, BLOOD 18 mg/dL (7-18)
[2025-05-21 21:27] LABS: LACTIC ACID 1.5 mmol/L (0.4-2.0)
[2025-05-21] MEDS ORDERED: POTASSIUM CL. PREMIX PERIPHER. 50 ML ONE (21:38)
[2025-05-21] MEDS: POTASSIUM CL. PREMIX PERIPHER. 50 ML IV SCH (21:41)
[2025-05-21] MEDS ORDERED: TEMAZEPAM 15 MG CAPSULE PO PRN (22:00)
[2025-05-21] MEDS ORDERED: Z GUARD REMEDY 4 OZ OINT TP PRN (22:00)
[2025-05-21] MEDS ORDERED: HYDROCODONE/APAP 5/325MG TABLET PO PRN (22:00)
[2025-05-21] MEDS ORDERED: MAGNESIUM HYDROXIDE 30 ML UDC PO PRN (22:00)
[2025-05-21] MEDS ORDERED: MAG HYDROX/AL HYDROX/SIMETH 30 ML UDC PO PRN (22:00)
[2025-05-21] MEDS ORDERED: ONDANSETRON HCL/PF 4 MG/2 ML VIAL IVP PRN (22:00)
[2025-05-21] MEDS ORDERED: ACETAMINOPHEN 325 MG TABLET PO PRN (22:00)
[2025-05-21] MEDS ORDERED: POTASSIUM CL. PREMIX PERIPHER. 150 ML ONE (22:01)
[2025-05-21 22:30] VITALS: BP 135/78; TEMP 99.3; O2SAT 95
[2025-05-21] MEDS: POTASSIUM CHLORIDE 20 MEQ TAB.PRT.SR PO ONE (22:42)
[2025-05-21] MEDS: IV NS 0.9% 1,000 ML IV PRN (23:52)
[2025-05-22] VITALS: BP 123/92; TEMP 99.1; O2SAT 94
[2025-05-22 04:00] VITALS: BP 110/61; TEMP 99; O2SAT 98
[2025-05-22 06:54] LABS: PLATELET COUNT (AUTO) 169 K/uL (150-450); RED BLOOD CELL COUNT(AUTO) 3.78 MIL/uL (4.0-5.2); RED CELL DISTRIBUTION WIDTH 14.4 % (11.5-15.0); WHITE BLOOD COUNT (AUTO) 6.2 K/uL (4.3-11.0)
[2025-05-22 07:01] LABS: CALCIUM, SERUM 8.8 mg/dL (8.5-10.1); CREATININE 1.2 mg/dL (0.6-1.3); PHOSPHORUS 3.6 mg/dL (2.5-4.9); SODIUM SERUM 142.0 mmol/L (136-145); UREA NITROGEN, BLOOD 18.0 mg/dL (7-18)
[2025-05-22 08:00] VITALS: BP 129/58; TEMP 97.4; O2SAT 99
[2025-05-22] MEDS ORDERED: OXYC15TA2 PO (09:42)
[2025-05-22] MEDS ORDERED: [UNRECOGNIZED DRUG - CODE] PO (09:42)
[2025-05-22] MEDS: PANTOPRAZOLE 40 MG TABLET.DR PO SCH (10:06)
[2025-05-22] MEDS: POTASSIUM CHLORIDE 20 MEQ TAB.PRT.SR PO SCH (11:55)
[2025-05-22 12:00] VITALS: BP 133/60; TEMP 98.1; O2SAT 97
[2025-05-22 16:00] VITALS: BP 125/60; TEMP 97.7; O2SAT 96
[2025-05-22 16:20] LABS: APPEARANCE,URINE CLEAR (CLEAR); BLOOD, URINE 1+ Ery/uL (NEGATIVE); LEUKOCYTE ESTERASE ,URINE 2+ (NEGATIVE); NITRITE, URINE NEGATIVE (NEGATIVE); UGLUCOSE NEGATIVE (NEGATIVE)
[2025-05-22 16:22] LABS: AMPHETAMINE, URINE NEGATIVE (NEGATIVE); BARBITURATE, URINE NEGATIVE (NEGATIVE); BENZODIAZEPINE, URINE NEGATIVE (NEGATIVE); CANNABINOID, URINE NEGATIVE (NEGATIVE); COCCAINE, URINE NEGATIVE (NEGATIVE); OPIATE, URINE NEGATIVE (NEGATIVE)
[2025-05-22 16:32] LABS: ADD URINE CULTURE YES; SQUAMOUS EPITHELIAL CELL,UR 0-2 /HPF (None Seen)
== END 2025-05-22 17:54 | disposition hospice, home (50) | DRG 640 ==
LOC: ER 20:27 → TELE1 21:50
PROVIDERS: ADMIT Nurse Practitioner Acute Care; ATTEND Nurse Practitioner Family
DX: E86.0 Dehydration (principal); G93.41 Metabolic encephalopathy; N17.0 Acute kidney failure with tubular necrosis; C79.9 Secondary malignant neoplasm of unspecified site; M48.56XA Collapsed vertebra, not elsewhere classified, lumbar region, initial encounter for fracture; I12.9 Hypertensive chronic kidney disease with stage 1 through stage 4 chronic kidney disease, or unspecified chronic kidney disease; N18.9 Chronic kidney disease, unspecified; G40.909 Epilepsy, unspecified, not intractable, without status epilepticus; G62.9 Polyneuropathy, unspecified; G43.909 Migraine, unspecified, not intractable, without status migrainosus; K21.9 Gastro-esophageal reflux disease without esophagitis; Z90.710 Acquired absence of both cervix and uterus; Z98.890 Other specified postprocedural states; Z85.118 Personal history of other malignant neoplasm of bronchus and lung; Z87.891 Personal history of nicotine dependence; Z82.3 Family history of stroke; Z82.49 Family history of ischemic heart disease and other diseases of the circulatory system; Z83.3 Family history of diabetes mellitus; M81.0 Age-related osteoporosis without current pathological fracture; M19.90 Unspecified osteoarthritis, unspecified site; J45.909 Unspecified asthma, uncomplicated; G89.29 Other chronic pain; F32.9 Major depressive disorder, single episode, unspecified; Z88.6 Allergy status to analgesic agent; Z88.0 Allergy status to penicillin; Z88.2 Allergy status to sulfonamides; Z88.8 Allergy status to other drugs, medicaments and biological substances; E78.5 Hyperlipidemia, unspecified; E87.6 Hypokalemia; F11.10 Opioid abuse, uncomplicated; F41.9 Anxiety disorder, unspecified; K59.00 Constipation, unspecified; Z91.81 History of falling
CPT/HCPCS: 36415; 70450-TC; 71045-TC; 80048-TC; 80076-TC; 81001; 83605-TC; 83735-TC; 84100-TC; 84484-TC; 85025-TC; 87081-TC; 87086-TC; 97110-TC; 97112-TC; 97116-TC; 97530-TC; A4223; G0378; G0480; J3480; J7030

== ENCOUNTER 2025-07-31 01:02 | Emergency (ER) | payer MEDICARE, OTHER ==
[~2025-07-31] VITALS: Ht 167.6 cm; Wt 81.6 kg
[~2025-07-31 01:02] MED LIST changes: -LORA2TAB PO; -LORA2TAB95 PO; +OXYC15TA2 PO; -OXYC5TAB3 PO; -ROSU10TA2 PO; -TRAM50TA2 PO; -TRAZ-182 PO; +[UNRECOGNIZED DRUG - CODE] PO
[2025-07-31 04:38] VITALS: BP 100/40; TEMP 98.2; O2SAT 97
== END 2025-07-31 04:39 | disposition home or self-care (01) ==
LOC: ER 01:03
DX: S52.022A Displaced fracture of olecranon process without intraarticular extension of left ulna, initial encounter for closed fracture (principal); S42.462A Displaced fracture of medial condyle of left humerus, initial encounter for closed fracture; S42.442A Displaced fracture (avulsion) of medial epicondyle of left humerus, initial encounter for closed fracture; G40.909 Epilepsy, unspecified, not intractable, without status epilepticus; G43.909 Migraine, unspecified, not intractable, without status migrainosus; I11.9 Hypertensive heart disease without heart failure; Z98.890 Other specified postprocedural states; Z88.6 Allergy status to analgesic agent; Z90.710 Acquired absence of both cervix and uterus; Z88.2 Allergy status to sulfonamides; Z88.0 Allergy status to penicillin; Z87.891 Personal history of nicotine dependence; Z79.899 Other long term (current) drug therapy; W19.XXXA Unspecified fall, initial encounter; Y93.89 Activity, other specified; Y92.89 Other specified places as the place of occurrence of the external cause; Y99.8 Other external cause status
CPT/HCPCS: 73060-TC; 73080-TC; 73110